=== PATIENT | female | born 1950 | race Caucasian/White ===

== ENCOUNTER → 2017-01-21 | Outpatient (CLI) | payer BC ==
[2017-01-21 14:24] LABS: Appearance,Urine Clear (Clear); Bilirubin,Urine Negative (Negative); Glucose,Urine (UA) Negative (Negative); Ketones,Urine Negative (Negative); Leukocyte Esterase,Urine Negative (Negative); Nitrite,Urine Negative (Negative); PH, Urine 6.5 (5.0-8.0); Protein,Urine Negative (Negative); Specific Gravity,Urine 1.016 (1.001-1.035); UA Billing (MACRO vs. MICRO) CHEM; Urobilinogen,Urine <2.0 mg/dL (<2.0)
[2017-01-21 14:28] LABS: Basophils # (A) 0.1 k/uL (0-0.2); Basophils % (A) 2 %; CH 32.7; CHCM 34.6; Eosinophils # (A) 0.1 k/uL (0-0.7); Eosinophils % (A) 2 %; HCT 47.5 % (34.0-46.0); HDW 2.93; HGB 15.9 gm/dL (11.4-16.0); Luc # (Auto) 0.18; Luc % (Auto) 4; Lymphocytes # (A) 0.9 k/uL (1.0-4.8); Lymphocytes % (A) 17 %; MCH 31.7 pg (25.0-35.0); MCHC 33.5 g/dL (31.0-37.0); MCV 94.8 fL (80.0-100.0); Mean Platelet Volume 8.6; Monocytes # (A) 0.4 k/uL (0-1.0); Monocytes % (A) 8 %; Neutrophils # (A) 3.5 k/uL (1.3-7.7); Neutrophils % (A) 68 %; RBC 5.02 m/uL (3.80-5.40); RDW 13.3 % (11.5-15.5); WBC 5.1 k/uL (3.8-10.6); WBC (Perox) 5.25
[2017-01-21 14:36] LABS: Partial Thromboplastin Time 23.7 sec (22.0-30.0); Prothrombin Time 9.9 sec (9.0-12.0)
[2017-01-21 14:40] LABS: ALT 49 U/L (9-52); AST 42 U/L (14-36); Alkaline Phosphatase 110 U/L (38-126); Anion Gap 14 mmol/L; Blood Urea Nitrogen 17 mg/dL (7-17); Calcium 10.5 mg/dL (8.4-10.2); Carbon Dioxide 28 mmol/L (22-30); Chloride 104 mmol/L (98-107); Glucose 89 mg/dL (74-99); Non-African American GFR(MDRD) >60 (>60 ml/min/1.73 sqM); Potassium 4.6 mmol/L (3.5-5.1); Sodium 146 mmol/L (137-145); Total Bilirubin 0.7 mg/dL (0.2-1.3); Total Protein 8.4 g/dL (6.3-8.2)
== END | disposition home or self-care (01) ==
LOC: LABPAT 14:01
PROVIDERS: ATTEND Orthopaedic Surgery Sports Medicine
DX: Z01.812 Encounter for preprocedural laboratory examination (principal); Z79.01 Long term (current) use of anticoagulants
CPT/HCPCS: 80053; 81003; 85025; 85610; 85730; 87070

== ENCOUNTER 2017-01-31 12:53 | Inpatient (IN) | payer BC ==
[2017-01-22 10:41] VITALS: BMI 33.7
[~2017-01-31 12:53] MED LIST: ACETAMINOPHEN TAB 500 MG TAB PO ONE; DEXAMETHASONE SOD PHOSPHATE 10 MG/ML 1 ML VIAL IV ONE; HYDROmorphone 1 MG/ML 1 ML SYRINGE IVP PRN; LIDOCAINE 1% 20 ML VIAL (10MG/ML) FOR IV START INTRADERMA PRN; MELOXICAM 7.5 MG TAB PO ONE; METOCLOPRAMIDE 5 MG/ML 2 ML VIAL IVP PRN; MIDAZOLAM 2 MG/2 ML VIAL IV PRN; ONDANSETRON 4 MG/2 ML VIAL IVP ONE; ONDANSETRON 4 MG/2 ML VIAL IVP PRN; ROPIVACAINE 246.25 MG, EPINEPHrine 0.5 MG, KETOROLAC 30 MG, cloNIDine HCL/PF 80 MCG, WA... MISCELLANE ONE; TRANEXAMIC ACID 1,000 MG in SODIUM CHLORIDE 0.9% 100 ML IVPB ONE; ceFAZolin 2 GM in SODIUM CHLORIDE 0.9% 100 ML IVPB ONE
[2017-01-31] MEDS ORDERED: LIDOCAINE 1% 20 ML VIAL (10MG/ML) FOR IV START INTRADERMA ONE (13:30)
[2017-01-31] MEDS: LACTATED RINGERS 1,000 ML IV SCH ×4 (13:30→23:16)
[2017-01-31] MEDS ORDERED: PROPOFOL 10 MG/ML 20 ML VIAL IV ONE (14:44)
[2017-01-31] MEDS ORDERED: diphenhydrAMINE 50 MG/ML 1 ML VIAL ONE (14:44)
[2017-01-31] MEDS ORDERED: ePHEDrine 50 MG/ML 1 ML AMP ONE (14:44)
[2017-01-31] MEDS ORDERED: MIDAZOLAM 2 MG/2 ML VIAL ONE (14:44)
[2017-01-31] MEDS ORDERED: MORPHINE SULFATE (PF) 0.3 MG/0.3 ML SYR ONE (14:44)
[2017-01-31] MEDS ORDERED: TRANEXAMIC ACID 1,000 MG/10 ML VIAL ONE (14:44)
[2017-01-31] MEDS ORDERED: SODIUM CHLORIDE 0.9% 100 ML BAG ONE (14:44)
[2017-01-31] MEDS ORDERED: hydrOXYzine PAMOATE 25 MG CAP PO PRN (14:48)
[2017-01-31] MEDS ORDERED: MAGNESIUM HYDROXIDE 2,400 MG/10 ML CUP PO PRN (14:48)
[2017-01-31] MEDS ORDERED: TEMAZEPAM 15 MG CAP PO PRN (14:48)
[2017-01-31] MEDS ORDERED: HYDROcodone/APAP 7.5-325MG 1 EACH TAB PO PRN ×2 (14:48)
[2017-01-31] MEDS ORDERED: BISACODYL 10 MG SUPP RECTAL PRN (14:48)
[2017-01-31] MEDS ORDERED: DIAZEPAM 5 MG TAB PO PRN (14:48)
[2017-01-31] MEDS ORDERED: HYDROmorphone 1 MG/ML 1 ML SYRINGE IVP PRN ×3 (14:48)
[2017-01-31] MEDS ORDERED: traMADol 50 MG TAB PO PRN (14:48)
[2017-01-31] MEDS ORDERED: NALOXONE 0.4 MG/ML 1 ML VIAL IV PRN ×2 (14:48→17:01)
[2017-01-31] MEDS ORDERED: NA PHOS,M-B/NA PHOS,DI-BA 133 ML ENEMA RECTAL PRN (14:48)
[2017-01-31] MEDS ORDERED: ONDANSETRON 4 MG/2 ML VIAL IVP PRN (14:48)
[2017-01-31] MEDS ORDERED: ACETAMINOPHEN TAB 325 MG TAB PO PRN (14:48)
[2017-01-31] MEDS ORDERED: ceFAZolin 3,000 MG in SODIUM CHLORIDE 0.9% IRRIGATIO 3,000 ML IRRIGATION ONE (15:15)
[2017-01-31] MEDS ORDERED: LACTATED RINGERS 1,000 ML IV ONE (15:52)
[2017-01-31] MEDS ORDERED: PROMETHAZINE INJ 6.25 MG in SODIUM CHLORIDE 0.9% 50 ML IVPB PRN (17:01)
[2017-01-31] MEDS ORDERED: diphenhydrAMINE 50 MG/ML 1 ML VIAL IVP PRN (17:01)
[2017-01-31] MEDS ORDERED: NALBUPHINE 10 MG/ML AMPUL IV PRN (17:01)
[2017-01-31] MEDS ORDERED: MORPHINE SULFATE 4 MG/ML SYRINGE IVP PRN ×2 (17:01→19:01)
--- NOTE | 2017-01-31 17:01 | XR ---
EXAMINATION TYPE: XR knee limited RT DATE OF EXAM: 01/31/2017 4:52 PM COMPARISON: NONE TECHNIQUE: One view submitted HISTORY: Post op FINDINGS: There is a prosthetic knee in near anatomic alignment. There is soft tissue edema and emphysema. IMPRESSION: 1. Postoperative change. Appears in near-anatomic alignment
[2017-01-31] MEDS ORDERED: WARFARIN 2.5 MG TAB PO ONE (18:00)
[2017-01-31] MEDS ORDERED: SENNOSIDES-DOCUSATE SODIUM 1 EACH TAB PO SCH (21:00)
[2017-01-31] MEDS: ceFAZolin 2 GM in SODIUM CHLORIDE 0.9% 100 ML IVPB SCH (23:15)
[2017-02-01 07:12] LABS: INR 1.7 (<1.1); Prothrombin Time 16.8 sec (9.0-12.0)
[2017-02-01 07:21] VITALS: BP 120/70; PULSE 80; RESP 17; TEMP 96.3
[2017-02-01 07:24] LABS: Basophils % (A) 0 %; CH 32.3; CHCM 34.8; Eosinophils % (A) 0 %; HCT 34.9 % (34.0-46.0); HDW 2.98; Luc # (Auto) 0.08; Luc % (Auto) 1; Lymphocytes # (A) 0.4 k/uL (1.0-4.8); Lymphocytes % (A) 5 %; MCH 32.8 pg (25.0-35.0); MCHC 35.2 g/dL (31.0-37.0); MCV 93.1 fL (80.0-100.0); Mean Platelet Volume 8.6; Monocytes # (A) 0.3 k/uL (0-1.0); Monocytes % (A) 4 %; Neutrophils # (A) 7.6 k/uL (1.3-7.7); Neutrophils % (A) 90 %; RBC 3.75 m/uL (3.80-5.40); RDW 13.5 % (11.5-15.5); WBC 8.4 k/uL (3.8-10.6); WBC (Perox) 8.98
[2017-02-01 07:34] LABS: HGB 12.3 gm/dL (11.4-16.0)
[2017-02-01] MEDS: ceFAZolin 2 GM in SODIUM CHLORIDE 0.9% 100 ML IVPB SCH (07:55)
--- NOTE | 2017-02-01 07:59 | OP ---
DATE OF SERVICE: 01/31/2017 SURGEON: RAO PAN MD ADJUNCT PSYCHOLOGY FACULTY MEMBER: Avery Akers PA-C PREOPERATIVE DIAGNOSIS: Right knee osteoarthrosis. POSTOPERATIVE DIAGNOSIS: Right knee osteoarthrosis. OPERATION: Right total knee arthroplasty. ANESTHESIA: Spinal with sedation. ESTIMATED BLOOD LOSS: 100 mL SPECIMENS REMOVED: COMPLICATIONS: None apparent. TOURNIQUET TIME: 43 minutes at 250 mmHg. DRAINS: None. DISPOSITION: Postanesthesia care unit. OPERATIVE FINDINGS: INDICATIONS: Stacey is a 66-year-old female with long-standing history of right knee pain. History and physical examination are consistent with advanced right knee osteoarthrosis. She has been through significant nonoperative management up to this point. Further treatment options were discussed and she has decided to go forward with right total knee arthroplasty. The risks of the procedure were discussed with her in detail. These risks include, but are not limited to risk of infection, nerve damage, bleeding, pain, and a small risk of deep vein thrombosis, which could lead to fatal apartment pulmonary embolism. There is also a risk of loosening of the implant, which could require revision operation. The patient understands these risks. All of her questions were answered to her satisfaction. Appropriate informed consent was obtained. DESCRIPTION OF THE PROCEDURE: The patient was identified in the preoperative holding area. Surgical site was marked by both the patient and myself. She was given 2 grams of Ancef IV for prophylactic purposes. She was then transferred to the operative suite where he she was placed supine on the operating room table. Spinal anesthetic was then administered and dosed by the anesthesia department without apparent complication. Examination under anesthesia then performed. The patient had 2 to 3 degrees shy of full extension. She had 95 degrees of flexion and the medial collateral ligament, lateral collateral ligament and posterior cruciate ligaments were stable. Tourniquet was then placed high on the right upper thigh, well-padded in preparation for surgery. Patient's right lower extremity was then prepped and draped usual sterile fashion. Standard surgical pause was then undertaken to ensure that we were operating on correct site and that appropriate preoperative antibiotics had been given. All staff in the room were in agreement and we proceeded. The outlines of the patella were then marked with a surgical pen. A planned 12 cm vertical incision centered over the patella was marked with a surgical pen. The leg was then exsanguinated with an Esmarch dressing. The knee was then flexed and tourniquet was inflated to 250 mmHg. The total tourniquet time for the procedure was 43 minutes. The incision was then made in the uatsdin 10 blade scalpel. Dissection was carried down sharply to the overlying fascia. Great care was taken to minimize the skin flaps. The knee was then exposed using a standard medial parapatellar approach. A small cuff of quadriceps tendon was then left for suturing. She was in a bit of varus preoperatively. A standard medial release was then made. Superficial medial collateral ligament was dissected off the bone around to the posterior aspect of the proximal tibia. The medial meniscus was then excised as well. The lateral meniscus was also released anteriorly. The leg was then externally rotated. The patella was then everted and the knee was flexed. Retractors were then placed to protect the collateral ligaments. I then proceeded to remove the infrapatellar fat pad. This was excised sharply tangentially with the fibers of the patellar tendon. I then proceeded to remove the peripheral osteophytes. This was done with a rongeur. I then proceeded with the distal femoral resection. She did have near full extension. A planned 9 mm resection was done. The femoral canal was then entered in the midline of the femur approximately 10 mm anterior to the origin of the posterior cruciate ligament. The carlos was then advanced down the center of the femur and the carlos placed intramedullary. Based on preoperative radiographs, the angle between the anatomic and mechanical axis of the femur was approximately 4 to 5 degrees the valgus angle of distal femoral cutting guide was then set at 4 degrees for the right knee. The distal femoral cutting guide was then advanced over the intramedullary carlos. This was seated firmly against the femur. I then, as mentioned, planned to take 9 mm off the distal femur. The cutting block was then secured onto the femur with pins. Jig was then removed and the distal femoral cut was made through the slot of the block. The pins then removed and the distal femoral cutting block was removed. The accuracy of the distal femoral cuts was checked with 2 flat bars. I then proceeded with femoral sizing. The posterior referencing sizing guide was held firmly against the resected distal surface of the femur. Posterior condyles were resting on the posterior plane of the guide. The sizing stylus was then placed onto the anterior femur. The size measured a size 8. I then assessed for femoral rotation. Plan was for 3 degrees of external rotation. 3 degrees of external rotation was placed onto the jig. These holes were then marked. I then confirmed the rotation by 3 separate methods. This was done using the epicondylar axis as well as Whitesides line and posterior referencing. It was deemed that the external rotation was proper. I then went forward placing the femoral cutting block. This was placed over the previously placed pinholes. Ricky wing was then placed onto the anterior slots to ensure that we would not notch the anterior femur with the anterior femoral cut. I then proceeded with the anterior femoral cut. This was flush with the anterior cortex of the femur. Posterior cuts were then made followed by the anterior chamfer cut and then the posterior chamfer cut. The cutting block was then removed. Throughout the resection, the collateral ligaments were protected with retractors. I then placed a trial size 8 femur. It was slightly wide medial to lateral and then it fit flush with the distal end of the femur. The narrow version of an 8 seemed appropriate. The drill holes were then made. I then proceeded with the tibial cut. I planned for cruciate-retaining knee. The guide was placed and set for varus valgus and for slope. The height was then set for an approximately 2 mm resection from the medial tibial plateau, which was the lower side. I was happy with the alignment and the amount of resection. The cutting block was then pinned to the proximal tibia. The alignment carlos was removed and the proximal tibia was resected with the reciprocating saw. Again this was done with retractors, protecting the collateral ligaments as well as posterior cruciate ligament. I then proceeded to evaluate the flexion and extension gaps. A 10 mm block was placed. The flexion-extension gaps were equal. I then proceeded with resection of the posterior osteophytes. She had very minimal posterior osteophytes. This was done with a curved osteotome. This resected the posterior osteophytes and posterior capsule stripping was also done off the posterior aspect of the femur at this time. The osteophytes were removed. I then proceeded with resection of the patella. The thickness of the patella was measured using the caliper. The thickness of is 22 mm. The thickness of the anticipated patellar dome was taken into account. Resection was then performed and confirmed to be equal in 4 quadrants using the caliper. Approximately 14 mm of bone remained after the resection. A 29 x 8 standard patellar trial was then placed. The holes were then drilled and trial was then placed. I then proceeded with sizing the tibial plate. A size E tibial plate fit very nicely. I then placed a trial femur, tibial tray and the patellar button. A 10 mm trial tibial insert was also placed. The components were fit very nicely. She had full extension and flexion. Extension and flexion gaps were equal and stable to both varus and valgus stress. The patella tracked appropriately. The tibial tray rotation was marked with a Bovie. This was externally rotated properly. I then proceeded with tibial preparation. I first drilled the femoral holes and removed the femoral component. The tibial tray was set for proper external rotation as well as mediolateral placement onto the tibia. It was then pinned into place. I then proceeded with punching the keel. I then decided to proceed with cementing of all of our components. The knee was thoroughly irrigated with sterile saline solution via pulse lavage. The lateral genicular artery was identified and cauterized. All blood was removed from the bone of the tibia, femur and patella with pulse lavage. I then proceeded with cementing. 2 packs of antibiotic bone cement were prepared on the back table by the surgical manager. I then proceeded with cementing of the tibia first. The cement was then impacted in the keel as well as deeply seated into the bone. A second coat of cement was then placed. The tibia was then impacted into place. Excess cement was removed with Edmond's and jokers. I then proceeded with cementing of the femoral component. The femoral component was also cemented using standard technique. Excess cement was removed. A 10 mm trial insert was then placed in the knee. It was brought into full extension with a constant axial load placed until the cement had hardened. The patellar component was then cemented. This was held firmly with a compressive device until the cement had dried. When the cement had dried, the knee was taken out of extension. All excess cement was removed from around the prosthesis. I then trialed the knee with a 10 mm insert. Flexion-extension gaps were appropriate. The knee was stable with a 10 mm insert. It came into full extension. I decided to go forward with a 10 mm cross-linked cruciate-retaining tibial insert. The polyethylene was then placed onto the tibial tray and locked into place. The knee was then reduced. The knee was again further irrigated with sterile saline solution with antibiotic added. The tourniquet was then deflated. The total tourniquet time for the procedure was 43 minutes at 250 mm. Final components were Tess Persona size 8 narrow cruciate-retaining femoral component, a size E tibial tray, a 10 mm medial congruent cruciate retaining polyethylene insert and a 29 x 8 mm patella. I then proceeded with closure. Again, the knee was thoroughly irrigated. Quadriceps tendon and the medial retinaculum were reapproximated with #2 Ethibond suture. The extensor mechanism was then closed with running #2 Quill suture. Subcutaneous tissues were closed with 2-0 Vicryl interrupted suture. Skin was closed with running 3-0 Quill suture. Dermabond was applied to the incision. Sterile compressive dressings were applied. All sponge and needle counts were deemed correct prior to closure. The patient tolerated the procedure without apparent complication. She was transferred to recovery room in stable condition.
--- NOTE | 2017-02-01 08:17 | P.PN ---
Progress Note - Text Date:02/01 Time:716 Patient is status post tkr. Patient seen this morning with VAS score of 0.no c/ o of pruritus, no c/o nausea/vomiting, comfortable and doing well.
--- NOTE | 2017-02-01 10:06 | P.DS ---
Providers Date of admission: 01/31/17 12:53 Expected date of discharge: 02/01/17 Attending physician: Pacheco Mosher Consults: 01/31/17 14:48 Consult Physician Routine Consulting Provider: Lane Patiño Consult Reason/Comments: post op medical management Do you want consulting provider notified?: Yes Primary care physician: Angie García DO Hospital Course: Patient was admitted to the OR on 01/31/2017 to undergo right total knee arthroplasty per Dr. Mosher. She had failed conservative measures as an outpatient and desired to proceed with elective surgery after given informed consent. She underwent the above procedure which she tolerated well without complication. Her postoperative hospital course has remained without complication. On day of discharge she desires discharge to home. On day of discharge she is afebrile, vital signs stable, labs within acceptable ranges, wound is benign, abdomen soft and nontender, calf is soft and nontender, neurovascular status intact, voiding without difficulty, positive flatus, tolerating by mouth meds and diet, denying new complaints, denying abdominal pain, denying calf pain. Review of systems is negative for fever, chills, chest pain, shortness of breath, cough, numbness, tingling, headaches, nausea, vomiting, dizziness, rashes, bleeding, slurred speech or other. Procedures: Right total knee arthroplasty Patient Condition at Discharge: Good Plan - Discharge Summary New Discharge Prescriptions: Docusate [Colace] 100 mg PO BID #60 capsule HYDROcodone/APAP 7.5-325MG [[place] 7.5-325] 1 - 2 each PO Q6HR PRN #90 tab PRN Reason: Pain Discharge Medication List Apremilast [Otezla] 30 mg PO BID 01/22/17 [History] Clopidogrel [Plavix] 75 mg PO DAILY 01/22/17 [History] Enalapril [Vasotec] 10 mg PO DAILY 01/22/17 [History] Hydrochlorothiazide 25 mg PO DAILY 01/22/17 [History] Levothyroxine Sodium [Synthroid] 50 mcg PO DAILY 01/22/17 [History] Metoprolol Succinate (ER) [Toprol Xl] 100 mg PO HS 01/22/17 [History] Tolterodine ER [Detrol LA] 4 mg PO HS 01/22/17 [History] amLODIPine [Norvasc] 10 mg PO DAILY 01/22/17 [History] azaTHIOprine [Imuran] 50 mg PO DAILY 01/22/17 [History] hydrALAZINE HCL [Apresoline] 100 mg PO DAILY 01/22/17 [History] traMADol HCl [Ultram] 50 mg PO Q8H PRN 01/22/17 [History] Rosuvastatin Calcium [Rosuvastatin Calcium] 10 mg PO HS 01/31/17 [History] Warfarin [Coumadin] 7.5 mg PO ONCE 01/31/17 [History] Docusate [Colace] 100 mg PO BID #60 capsule 02/01/17 [Rx] HYDROcodone/APAP 7.5-325MG [[place]akers 7.5-325] 1 - 2 each PO Q6HR PRN #90 tab [Rx] Follow up Appointment(s)/Referral(s): Maria [facility] [place], [NON-STAFF] - 1 Week Pacheco Mosher MD [STAFF PHYSICIAN] - 2 Weeks Ambulatory/Diagnostic Orders: Prothrombin Time INR [LAB.AMB] Location: Determined By Patient Activity/Diet/Wound Care/Special Instructions: Keep wound clean and dry Take meds as directed Follow-up with Dr. Mosher in office, [phone] May shower in 72 hours Weight-bear as tolerated Discharge Disposition: HOME WITH HOME HEALTH SERVICES
[2017-02-01] MEDS ORDERED: MULTIVITAMINS, THERA 1 EACH TAB PO SCH (12:00)
[2017-02-01] MEDS: LACTATED RINGERS 1,000 ML IV SCH (13:10)
[2017-02-01] MEDS ORDERED: WARFARIN 5 MG TAB PO ONE (18:00)
--- NOTE | 2017-02-01 21:18 | CONS ---
DATE OF CONSULTATION: REASON FOR CONSULTATION: Recommendations regarding antihypertensive medications. Patient underwent a right knee arthroplasty. Patient is on multiple antihypertensive medications. After which patient was seen yesterday postsurgery was quite hypotensive and received IV fluid. Today in spite of not taking any of her medications, patient's blood pressure still remained low normal of normal at 120/70 and patient is on multiple antihypertensive medications at home. I did evaluate the patient and patient's DVT prophylaxis per primary service. Patient appears to have his atrial fibrillation history. Patient is on Coumadin at home, which can be continued and INR needs to be tested in 4 more days and patient is on multiple medications, including enalapril, hydrochlorothiazide, amlodipine, hydralazine and patient's blood pressure remained low in spite of not taking any of these medications. Along with that, patient is on Toprol-XL for A. fib. I did evaluate the patient. The patient's all review of systems are negative and patient is being discharged today. I modified the medications. I cut down the enalapril to half, discontinued hydrochlorothiazide and amlodipine. Patient will need to check her blood pressure twice a day, appropriate way to measure the blood pressure was counseled to the patient and take it to the primary care physician. Patient needs to see her PCP Dr. Angie García in about 3 to 7 days. REVIEW OF SYSTEMS: CONSTITUTIONAL: No fever, no malaise, no fatigue. HEENT: No recent visual problems or hearing problems. Denied any sore throat. CARDIOVASCULAR: No chest pain, orthopnea, PND, no palpitations, no syncope. PULMONARY: No shortness of breath, no cough, no hemoptysis. GASTROINTESTINAL: No diarrhea, no nausea, no vomiting, no abdominal pain. Normoactive bowel sounds. NEUROLOGICAL: No headaches, no weakness, no numbness. HEMATOLOGICAL: Denies any bleeding or petechiae. GENITOURINARY: Denies any burning micturition, frequency, or urgency. MUSCULOSKELETAL/RHEUMATOLOGICAL: Denies any joint pain, swelling, or any muscle pain. ENDOCRINE: Denies any polyuria or polydipsia. The rest of the 14 point review of systems is negative. Home medications include: Enalapril, Tramadol, azathioprine, Coumadin, ( ), atorvastatin, metoprolol, levothyroxine, Plavix, Otezla, hydrocodone, acetaminophen, Docusate. PAST MEDICAL HISTORY: Significant for atrial fibrillation, hypertension, myocardial infarction in the past, osteoarthritis, hypothyroidism, dermatomyositis and bladder surgery in the past, cardiac ablation surgery, cardiac catheterization in the past with stent placement, hysterectomy, colonoscopy. SOCIAL HISTORY: Denied any smoking, alcohol abuse or drug abuse. FAMILY HISTORY: Significant for some kind of cancer. PHYSICAL EXAMINATION: Temperature 96.3, pulse of 80, respiratory rate of 17. Blood pressure is 120/70. Saturating at 97% on room air. GENERAL: The patient is alert and oriented x3, not in any acute distress. Well developed, well nourished. HEENT: Pupils are round and equally reacting to light. EOMI. No scleral icterus. No conjunctival pallor. Normocephalic, atraumatic. No pharyngeal erythema. No thyromegaly. CARDIOVASCULAR: S1 and S2 present. No murmurs, rubs, or gallops. PULMONARY: Chest is clear to auscultation, no wheezing or crackles. ABDOMEN: Soft, nontender, nondistended, normoactive bowel sounds. No palpable organomegaly. MUSCULOSKELETAL: Defer to orthopedic surgery. EXTREMITIES: No cyanosis, clubbing, or pedal edema. NEUROLOGICAL: Gross neurological examination did not reveal any focal deficits. SKIN: No rashes. LABORATORY DATA: INR is 1.7. Hemoglobin is 12.3. The rest of the labs are essentially within normal limits and x-rays of the right knee were reviewed. ASSESSMENT AND PLAN: 1. Hypotension. Regarding antihypertensive management as dictated in the history itself. The medication because of this was reviewed by me. Patient is okay to be discharged from medical perspective. 2. Status post right knee arthroplasty. Patient is already on anticoagulation for atrial fibrillation, on Coumadin, which can be continued. Repeat INR in 4 days. 3. Atrial fibrillation, rate controlled. Metoprolol can be continued. 4. Acute coronary artery disease. 5. Hypothyroidism. 6. History of dermatomyositis. For above-mentioned chronic medical problems, the rest of her home medications including azathioprine can be continued. Otezla can be continued. Patient will follow with her primary care physician on February 08 at 1:00 p.m. [facility] care will follow the patient. Follow with Orthopedic Surgery as scheduled. Thank you for letting me participate in this patient's care. Will sign off at this point of time.
== END 2017-02-01 15:20 | disposition home health service (06) | DRG 470 ==
LOC: 2ORMAIN 12:53 → 3SUR 16:34
PROVIDERS: ADMIT Orthopaedic Surgery Sports Medicine; ATTEND Orthopaedic Surgery Sports Medicine
PROC: 0SRC0J9 Replacement of Right Knee Joint with Synthetic Substitute, Cemented, Open Approach (ICD-10-PCS; principal; 2017-01-31 15:00)
DX: M17.11 Unilateral primary osteoarthritis, right knee (principal); I48.91 Unspecified atrial fibrillation; I10 Essential (primary) hypertension; E03.9 Hypothyroidism, unspecified; Z91.041 Radiographic dye allergy status; Z79.82 Long term (current) use of aspirin; Z79.899 Other long term (current) drug therapy; I25.10 Atherosclerotic heart disease of native coronary artery without angina pectoris; I25.2 Old myocardial infarction
CPT/HCPCS: 85025; 85610; 88300

== ENCOUNTER 2021-12-20 12:09 | Emergency (ER) | payer BC, MEDICARE ==
[2021-12-20 12:26] VITALS: BP 190/90; RESP 18; TEMP 98.8
[2021-12-20] MEDS ORDERED: SODIUM CHLORIDE 0.9% 50 ML IVPB ONE (13:15)
[2021-12-20] MEDS ORDERED: SOTROVIMAB (EUA) 500 MG in SODIUM CHLORIDE 0.9% 100 ML IVPB ONE (13:45)
--- NOTE | 2021-12-20 13:50 | XR ---
EXAMINATION TYPE: XR chest 2V DATE OF EXAM: 12/20/2021 COMPARISON: NONE TECHNIQUE: PA and lateral views submitted. HISTORY: Cough FINDINGS: The lungs are clear and there is no pneumothorax, pleural effusion, or focal pneumonia. Heart is en larged. Atherosclerotic change aorta. Biapical pleural thickening. No overt failure. IMPRESSION: 1. Cardiomegaly.
--- NOTE | 2021-12-20 14:00 | ED ---
URI HPI - General Chief Complaint: Upper Respiratory Infection Stated Complaint: Covid exposure Time Seen by Provider: 12/20/21 12:20 Source: patient, RN notes reviewed Mode of arrival: ambulatory Limitations: no limitations - History of Present Illness Initial Comments: 71-year-old female presents emergency Department with chief complaint cough congestion 2 days. Patient states she had recent COVID-19 exposure. Patient states she has nonproductive cough, body aches, headache and nasal congestion. Patient denies any chest pain no GI symptoms includingdiarrhea constipation. Patient has no other complaints. Patient's had prior COVID-19 vaccination. - Related Data Home Medications Medication Instructions Recorded Confirmed Apremilast [Otezla] 30 mg PO BID 01/22/17 01/31/17 Clopidogrel [Plavix] 75 mg PO DAILY 01/22/17 01/31/17 Enalapril [Vasotec] 5 mg PO DAILY 01/22/17 02/01/17 Levothyroxine Sodium [Synthroid] 50 mcg PO DAILY 01/22/17 01/31/17 Metoprolol Succinate (ER) [Toprol 100 mg PO HS 01/22/17 01/31/17 Xl] Tolterodine ER [Detrol LA] 4 mg PO HS 01/22/17 01/31/17 azaTHIOprine [Imuran] 50 mg PO DAILY 01/22/17 01/31/17 traMADol HCl [Ultram] 50 mg PO Q8H PRN 01/22/17 01/31/17 Rosuvastatin Calcium 10 mg PO HS 01/31/17 01/31/17 Warfarin [Coumadin] 7.5 mg PO ONCE 01/31/17 01/31/17 Previous Rx's Medication Instructions Recorded Docusate [Colace] 100 mg PO BID #60 capsule 02/01/17 HYDROcodone/APAP 7.5-325MG [[place] 1 - 2 each PO Q6HR PRN #90 tab 02/01/17 7.5-325] Allergies Allergy/AdvReac Type Severity Reaction Status Date / Time Iodinated Contrast Media AdvReac SEVERE Verified 02/01/17 02:17 [Iodinated Contrast Media - PAIN AND Oral and] METAL TASTE IN MOUTH Review of Systems ROS Statement: Those systems with pertinent positive or pertinent negative responses have been documented in the HPI. ROS Other: All systems not noted in ROS Statement are negative. Past Medical History Past Medical History: Atrial Fibrillation, Hypertension, Myocardial Infarction ([place]), Osteoarthritis (OA), Skin Disorder, Thyroid Disorder Additional Past Medical History / Comment(s): DERMATOMYOSITIS. OVERACTIVE BLADDER Last Myocardial Infarction Date:: 04/2007 History of Any Multi-Drug Resistant Organisms: None Reported Past Surgical History: Bladder Surgery, Cardiac Ablation, Heart Catheterization With Stent, Hysterectomy Additional Past Surgical History / Comment(s): COLONOSCOPY. LT CAROTID ENDARTERECTOMY, TRK. D & C Past Anesthesia/Blood Transfusion Reactions: No Reported Reaction Date of Last Stent Placement:: 04/2007 Past Psychological History: No Psychological Hx Reported Smoking Status: Never smoker Past Alcohol Use History: Occasional Past Drug Use History: None Reported - Past Family History Brother(s) Family Medical History: Cancer General Exam Limitations: no limitations General appearance: alert, in no apparent distress Head exam: Present: atraumatic, normocephalic, normal inspection Eye exam: Present: normal appearance, PERRL, EOMI. Absent: scleral icterus, conjunctival injection, periorbital swelling ENT exam: Present: normal exam, normal oropharynx, mucous membranes moist Neck exam: Present: normal inspection, full ROM. Absent: tenderness, meningism us, lymphadenopathy Respiratory exam: Present: normal lung sounds bilaterally. Absent: respiratory distress, wheezes, rales, rhonchi, stridor Cardiovascular Exam: Present: regular rate, normal rhythm, normal heart sounds. Absent: systolic murmur, diastolic murmur, rubs, gallop, clicks Course Vital Signs 12/20/21 12:22 Temperature 98.8 F Pulse Rate 67 Respiratory 18 Rate Blood Pressure 190/90 O2 Sat by Pulse 98 Oximetry Medical Decision Making - Medical Decision Making patient's positive occult 19. X-rays unremarkable. Patient did receive monoclonal antibodies discharged in stable condition return parameters were discussed. Patient agrees to plan. - Lab Data Lab Results 12/20/21 Range/Units 12:26 Coronavirus (PCR) Detected A (Not Detectd) Disposition Clinical Impression: COVID-19 Disposition: HOME SELF-CARE Condition: Stable Instructions (If sedation given, give patient instructions): Coronavirus Disease 2019 (COVID-19) Additional Instructions: Please return to the Emergency Department if symptoms worsen or any other concerns. Is patient prescribed a controlled substance at d/c from ED?: No Referrals: Nonstaff,Physician [Primary Care Provider] - 1-2 days Time of Disposition: 14:00
[2021-12-20 14:55] VITALS: PULSE 65
== END 2021-12-20 14:55 | disposition home or self-care (01) ==
LOC: EC 12:09
DX: U07.1 COVID-19 (principal); I48.91 Unspecified atrial fibrillation; I10 Essential (primary) hypertension; I25.2 Old myocardial infarction; M19.90 Unspecified osteoarthritis, unspecified site; E07.9 Disorder of thyroid, unspecified; Z79.02 Long term (current) use of antithrombotics/antiplatelets; Z79.01 Long term (current) use of anticoagulants; Z90.710 Acquired absence of both cervix and uterus
CPT/HCPCS: 99284; 87635; 71046; Q0247

== ENCOUNTER 2025-01-27 15:39 | Inpatient (IN) | payer MEDICARE ==
--- NOTE | 2025-01-27 16:27 | ED ---
General Adult HPI - General Chief complaint: Neuro Symptoms/Deficit Stated complaint: R arm numbness Time Seen by Provider: 01/27/25 16:05 Source: patient Mode of arrival: ambulatory Limitations: no limitations - History of Present Illness Initial comments: Dictation was produced using [employer] dictation software. please excuse any grammatical, word or spelling errors. Chief Complaint: 74-year-old female with multiple comorbidities presents to the emergency department for right arm symptoms History of Present Illness: Patient 74-year-old female presents to the emergency department with intermittent episodes of right upper extremity symptoms. Few days ago she had a short-lived episode where she had trouble using her right arm. States that that lasted and resolved on its own. Patient states today she had frequent at least 3 or 4 episodes of tingling to the right arm. She has history of left carotid endarterectomy and she has plans for outpatient CT angiography of the head and neck. Patient has any symptoms at the bedside. Denies any pain complaints. No other complaints noted. The ROS documented in this emergency department record has been reviewed and confirmed by me. Those systems with pertinent positive or negative responses have been documented in the HPI. All other systems are other negative and/or noncontributory. - Related Data Home Medications Medication Instructions Recorded Confirmed Levothyroxine Sodium [Synthroid] 50 mcg PO DAILY 01/22/17 01/27/25 Metoprolol Succinate (ER) [Toprol 100 mg PO HS 01/22/17 01/27/25 Xl] Losartan/Hydrochlorothiazide 1 tab PO DAILY 01/27/25 01/27/25 [Losartan-Hctz 100-25 mg Tab] Pravastatin Sodium [Pravachol] 20 mg PO HS 01/27/25 01/27/25 allopurinoL [Zyloprim] 100 mg PO HS 01/27/25 01/27/25 amLODIPine [Norvasc] 10 mg PO DAILY 01/27/25 01/27/25 Allergies Allergy/AdvReac Type Severity Reaction Status Date / Time Iodinated Contrast Media AdvReac SEVERE Verified 01/27/25 16:51 [Iodinated Contrast Media - PAIN AND Oral and] METAL TASTE IN MOUTH Review of Systems ROS Statement: Those systems with pertinent positive or pertinent negative responses have been documented in the HPI. ROS Other: All systems not noted in ROS Statement are negative. Past Medical History Past Medical History: Atrial Fibrillation, Hypertension, Myocardial Infarction ([place]), Osteoarthritis (OA), Skin Disorder, Thyroid Disorder Additional Past Medical History / Comment(s): DERMATOMYOSITIS. OVERACTIVE BLADDER Last Myocardial Infarction Date:: 04/2007 History of Any Multi-Drug Resistant Organisms: None Reported Past Surgical History: Bladder Surgery, Cardiac Ablation, Heart Catheterization With Stent, Hysterectomy Additional Past Surgical History / Comment(s): COLONOSCOPY. LT CAROTID ENDARTERECTOMY, TRK. D & C Past Anesthesia/Blood Transfusion Reactions: No Reported Reaction Date of Last Stent Placement:: 04/2007 Past Psychological History: No Psychological Hx Reported Smoking Status: Never smoker Past Alcohol Use History: None Reported Past Drug Use History: None Reported - Past Family History Brother(s) Family Medical History: Cancer General Exam - General Exam Comments Initial Comments: PHYSICAL EXAM: General Impression: Alert and oriented x3, not in acute distress HEENT: Normocephalic atraumatic, extra-ocular movements intact, pupils equal and reactive to light bilaterally, mucous membranes moist. Cardiovascular: Heart regular rate and rhythm Chest: Able to complete full sentences, no retractions, no tachypnea Abdomen: abdomen soft, non-tender, non-distended, no organomegaly Musculoskeletal: Pulses present and equal in all extremities, no peripheral edema Motor: no focal deficits noted Neurological: CN II-XII grossly intact, no focal motor or sensory deficits noted Skin: Intact with no visualized rashes Psych: Normal affect and mood Limitations: no limitations Course Vital Signs 01/27/25 01/27/25 15:56 19:54 Temperature 97.3 F L Pulse Rate 75 82 Respiratory 19 18 Rate Blood Pressure 163/91 181/102 O2 Sat by Pulse 96 99 Oximetry EKG Findings - EKG Comments: EKG Findings:: My EKG interpretation: Ventricular rate 75, sinus rhythm,. Normal 201, QRS 102, QTc 392. No [place] prolongation, no QTC prolongation, no ST or T-wave changes noted. Overall, this EKG is unremarkable Medical Decision Making - Medical Decision Making Was pt. sent in by a medical professional or institution (, PA, UNDERCUTTER, urgent care, hospital, or prison...) When possible be specific @ -No Did you speak to anyone other than the patient for history (EMS, parent, family, police, friend...)? What history was obtained from this source @ -No Did you review nursing and triage notes (agree or disagree)? Why? @ -I reviewed and agree with nursing and triage notes Were old charts reviewed (outside hosp., previous admission, EMS record, old EKG, old radiological studies, urgent care reports/EKG's, prison records)? Report findings @ -No old charts were reviewed Differential Diagnosis (chest pain, altered mental status, abdominal pain women, abdominal pain men, vaginal bleeding, musculoskeletal, weakness, fever, dyspnea, syncope, headache, dizziness, GI bleed, back pain, seizure, CVA, palpatations, mental health)? @ - Differential CVA: Ischemic stroke, hemorrhagic stroke, brain tumor, atypical migraine, Wernicke's encephalopathy, seizure, multiple sclerosis, meningitis, encephalitis, hypoglycemia, Guillain-Gibbons, electrolytes disturbance, myasthenia gravis.... This is not meant to be an all-inclusive list EKG interpreted by me (3pts min.). @ -See above X-rays interpreted by me (1pt min.). @ -None done CT interpreted by me (1pt min.). @ -CT brain CT angiography head and neck shows no acute processes. Patient does have what appears to be significant changes at the left carotid with significant stenosis near 90% at its origin U/S interpreted by me (1pt. min.). @ -None done What testing was considered but not performed or refused? (CT, X-rays, U/S, labs)? Why? @ -None What meds were considered but not given or refused? Why? @ -None Was smoking cessation discussed for >3mins.? @ -No Were there social determinants of health that impacted care today? How? (Homelessness, low income, unemployed, alcoholism, drug addiction, transportation, low edu. Level, literacy, decrease access to med. care, intermediate, rehab)? @ -No Was there de-escalation of care discussed even if they declined (Discuss DNR or withdrawal of care, Hospice)? DNR status @ -No What co-morbidities impacted this encounter? (DM, HTN, Smoking, COPD, CAD, Cancer, CVA, ARF, Chemo, Hep., AIDS, mental health diagnosis, sleep apnea, morbi d obesity)? @ -Carotid stenosis Was patient admitted / discharged? Hospital course, mention meds given and route, prescriptions, significant lab abnormalities, going to OR and other pertinent info. @ -74-year-old female with TIA symptoms affecting the right upper extremity. She has history of left carotid endarterectomy. Patient asymptomatic at the bedside. Vital signs upon arrival are within acceptable limits. Laboratory evaluation is unremarkable. Imaging studies shows no acuity. Patient given aspirin. Disposition options were discussed. Patient agreeable for hospital admission consultation to neurology for transient ischemic attack. Did you discuss the management of the patient with other professionals (professionals i.e. , PA, UNDERCUTTER, lab, RT, psych nurse, psychotherapist social worker, cigar machine feeder, teacher, radio officer, case hardener)? Give summary @ -No Was critical care preformed (if so, how long)? @ -No Undiagnosed new problem with uncertain prognosis? @ -No Drug Therapy requiring intensive monitoring for toxicity (Heparin, Nitro, Insulin, Cardizem)? @ -No Were any procedures done? @ -No Diagnosis/symptom? Acute, or Chronic, or Acute on Chronic? Uncomplicated (without systemic symptoms) or Complicated (systemic symptoms)? @ -TIA Side effects of treatment? @ -No Exacerbation, Progression, or Severe Exacerbation? @ -No Poses a threat to life or bodily function? How? (Chest pain, [place], [place], pneumonia, PE, COPD, DKA, ARF, appy, cholecystitis, CVA, Diverticulitis, Homicidal, Suicidal, threat to staff... and all critical care pts) @ -yes - Lab Data Result diagrams: 01/27/25 16:41 01/27/25 16:41 Lab Results 01/27/25 01/27/25 01/27/25 Range/Units 16:41 16:41 16:41 WBC 5.1 (3.8-10.6) k/uL RBC 4.85 (3.80-5.40) m/uL Hgb 14.6 (11.4-16.0) gm/dL Hct 43.6 (34.0-46.0) % MCV 90.1 (80.0-100.0) fL MCH 30.0 (25.0-35.0) pg MCHC 33.4 (31.0-37.0) g/dL RDW 14.1 (11.5-15.5) % Plt Count 198 (150-450) k/uL MPV 9.2 Neutrophils % 57 % Lymphocytes % 34 % Monocytes % 5 % Eosinophils % 2 % Basophils % 1 % Neutrophils # 2.9 (1.3-7.7) k/uL Lymphocytes # 1.7 (1.0-4.8) k/uL Monocytes # 0.3 (0-1.0) k/uL Eosinophils # 0.1 (0-0.7) k/uL Basophils # 0.0 (0-0.2) k/uL PT 10.6 (10.0-12.5) sec INR 0.9 (<1.2) APTT 24.0 (22.0-30.0) sec Sodium 142 (137-145) mmol/L Potassium 3.9 (3.5-5.1) mmol/L Chloride 100 (98-107) mmol/L Carbon Dioxide 32 H (22-30) mmol/L Anion Gap 10 mmol/L BUN 20 H (7-17) mg/dL Creatinine 0.90 (0.52-1.04) mg/dL Est GFR (CKD-EPI)AfAm 74 (>60 ml/min/1.73 sqM) Est GFR (CKD-EPI)NonAf 64 (>60 ml/min/1.73 sqM) Glucose 98 (74-99) mg/dL Calcium 10.2 (8.4-10.2) mg/dL Disposition Clinical Impression: Transient cerebral ischemia Disposition: ADMITTED IP TO THIS HOSP Condition: Fair Referrals: Nonstaff,Physician [Primary Care Provider] - 1-2 days Decision Time: 20:05
[2025-01-27] MEDS: diphenhydrAMINE 50 MG/ML 1 ML VIAL IVP STA (16:36)
[2025-01-27] MEDS: FAMOTIDINE 20 MG/2 ML VIAL IV STA (16:36)
[2025-01-27] MEDS: methylPREDNISolone SOD SUCCI 125 MG/2 ML VIAL IV STA (16:36)
[2025-01-27 17:02] LABS: Basophils % (A) 1 %; Eosinophils # (A) 0.1 k/uL (0-0.7); Eosinophils % (A) 2 %; HCT 43.6 % (34.0-46.0); HGB 14.6 gm/dL (11.4-16.0); Lymphocytes # (A) 1.7 k/uL (1.0-4.8); Lymphocytes % (A) 34 %; MCHC 33.4 g/dL (31.0-37.0); MCV 90.1 fL (80.0-100.0); Mean Platelet Volume 9.2; Monocytes # (A) 0.3 k/uL (0-1.0); Monocytes % (A) 5 %; Neutrophils # (A) 2.9 k/uL (1.3-7.7); Neutrophils % (A) 57 %; Platelet Count 198 k/uL (150-450); RBC 4.85 m/uL (3.80-5.40); RDW 14.1 % (11.5-15.5); WBC 5.1 k/uL (3.8-10.6)
[2025-01-27 17:12] LABS: African American GFR (CKD) 74 (>60 ml/min/1.73 sqM); Anion Gap 10 mmol/L; Blood Urea Nitrogen 20 mg/dL (7-17); Calcium 10.2 mg/dL (8.4-10.2); Carbon Dioxide 32 mmol/L (22-30); Chloride 100 mmol/L (98-107); Glucose 98 mg/dL (74-99); Non-African American GFR(CKD) 64 (>60 ml/min/1.73 sqM); Potassium 3.9 mmol/L (3.5-5.1); Sodium 142 mmol/L (137-145)
[2025-01-27 17:19] LABS: INR 0.9 (<1.2); Prothrombin Time 10.6 sec (10.0-12.5)
--- NOTE | 2025-01-27 19:06 | CT ---
EXAMINATION TYPE: CT brain wo con DATE OF EXAM: 01/27/2025 COMPARISON: None. CLINICAL INDICATION: Female, 74 years old with history of fall; PHH, patient reports right arm fallin g asleep and becoming limp. patient reports hearing swooshing in left carotid artery, right hand not following commands. Fall injury. TECHNIQUE: CT scan of the head is performed without contrast. CT DLP: 1104 mGycm Automated exposure control for dose reduction was used. FINDINGS: There is no acute intracranial hemorrhage or midline shift identified. There is mild to m oderate diffuse ventricular and sulcal prominence consistent with diffuse age-related cerebral atroph y. There is mild low-attenuation in the periventricular white matter most likely consistent with chr onic small vessel ischemic change in patient of this age. The calvarium is intact. Bilateral aphakia is seen. The visualized sinuses are clear. Nasal septum is deviated to right of midline. IMPRESSION: No acute intracranial hemorrhage or midline shift. [facility], , 01/27/2025 7:04 PM
--- NOTE | 2025-01-27 19:16 | CT ---
EXAMINATION TYPE: CT angio head neck DATE OF EXAM: 01/27/2025 COMPARISON: None. CLINICAL INDICATION: Female, 74 years old with history of neurologic defecit; PHH, patient reports ri ght arm falling asleep and becoming limp. patient reports hearing swooshing in left carotid artery, r ight hand not following commands. TECHNIQUE: CTA scan of the head and neck is performed with IV Contrast, patient injected with 65ml m L of Isovue 370, axial images are obtained, coronal and sagittal reformatted images are reviewed. 3D reconstructed images are created on an independent workstation and reviewed. CT DLP: 503.9 mGycm Automated exposure control for dose reduction was used. NASCET criteria was used in interpretation of this exam? FINDINGS: Right Carotid System: The common carotid artery and external carotid artery are patent. The carotid bifurcation demonstrate s no evidence of hemodynamically significant stenosis. Moderate peripheral calcified plaque is presen t extending into proximal internal carotid artery causing stenosis under 50% The remaining portions o f the internal carotid artery demonstrate normal size without significant narrowing. Left Carotid System: Surgical clips in the left neck are seen. The common carotid artery and external carotid artery are patent. The carotid bifurcation demonstrate s curvilinear low density at origin with significant stenosis estimated near 90% at its origin with o nly little flow along superior aspect axial image 77 noted. There is Additional stenosis in the proximal internal carotid artery with lumen diameter down to 4.1 mm seen o n axial image 81, less than 50%. The remaining portions of the internal carotid artery demonstrate no rmal size without significant narrowing. Vertebral arteries are patent without evidence hemodynamically significant stenosis. Dominant left ve rtebral artery is seen. [id number] peripheral calcified plaque distal internal carotid arteries bilaterally. No large vessel occlusion or aneurysm in the [place]. There is a three-vessel aortic arch. The origins of the great vessels are patent. No evidence of hemo dynamically significant stenosis. Other: Moderate to severe disc space narrowing and endplate sclerosis at C5-C6 level. Moderate disc s pace narrowing at C6-C7 level IMPRESSION: 1. No large vessel occlusion or aneurysm at the level of the [place]. 2. Postsurgical change left neck or carotid bulb level. There appears to be significant stenosis cory r 90% at origin of the surgically treated left internal carotid artery. Advise further investigation with direct catheter angiogram to better evaluate and/or treat. [facility], , 01/27/2025 7:13 PM
[2025-01-27] MEDS ORDERED: NALOXONE 0.4 MG/ML 1 ML VIAL IV PRN (20:02)
[2025-01-27] MEDS: SODIUM CHLORIDE 0.9% 1,000 ML IV SCH (20:18)
[2025-01-27] MEDS: ASPIRIN 81 MG PO STA (20:19)
[2025-01-27] MEDS ORDERED: hydrALAZINE HCL 20 MG/ML 1 ML VIAL IVP PRN (23:15)
[2025-01-28] MEDS: LEVOTHYROXINE 50 MCG TAB PO SCH (06:04)
[2025-01-28] MEDS: LOSARTAN-HCTZ 50-12.5 MG 1 EACH TAB PO SCH (08:52)
[2025-01-28] MEDS: amLODIPine 10 MG TAB PO SCH (08:52)
--- NOTE | 2025-01-28 15:45 | P.CNNES ---
History of Present Illness Consult date: 01/28/25 Requesting physician: Miller Mejia Reason for Consult: tia History of Present Illness: This is a 74-year-old woman who presented emergency department because of right hand weakness and numbness. 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 Then yesterday she had numbness in the entire right arm and she felt was weak so she decided to come to the hospital. Patient states that she feels back to baseline. Denies any visual disturbance difficulty swallowing any weakness anywhere or any numbness anywhere. She has history of atrial fibrillation status post ablation in the past. She denies any history of stroke or TIA but she did have left carotid stenosis that was significant and had carotid enterectomy and she states that was many years back. Patient is on aspirin 81 mg daily. Some of the workup during this hospital visit consisted of: I reviewed the lab workup CT of the head is reported as no acute intracranial hemorrhage or midline shift. I personally reviewed the CT head and agree with report CT angiography of the head and neck: No large vessel occlusion or aneurysm at the level of [place]. Postsurgical changes at the left neck or carotid bulb level. There appears to be significant stenosis near 90% at the origin of the surgical treated left internal carotid artery. Review of Systems As per HPI. Past Medical History Past Medical History: Atrial Fibrillation, Hypertension, Myocardial Infarction ([place]), Osteoarthritis (OA), Skin Disorder, Thyroid Disorder Additional Past Medical History / Comment(s): DERMATOMYOSITIS. OVERACTIVE BLADDER Last Myocardial Infarction Date:: 04/2007 History of Any Multi-Drug Resistant Organisms: None Reported Past Surgical History: Bladder Surgery, Cardiac Ablation, Heart Catheterization With Stent, Hysterectomy, Orthopedic Surgery Additional Past Surgical History / Comment(s): COLONOSCOPY, LT CAROTID ENDARTERECTOMY, TRK, D & C, L hip replacement Past Anesthesia/Blood Transfusion Reactions: No Reported Reaction Date of Last Stent Placement:: 04/2007 Past Psychological History: No Psychological Hx Reported Smoking Status: Never smoker Past Alcohol Use History: None Reported Past Drug Use History: None Reported - Past Family History Brother(s) Family Medical History: Cancer Medications and Allergies Home Medications Medication Instructions Recorded Confirmed Type Levothyroxine Sodium [Synthroid] 50 mcg PO DAILY 01/22/17 01/27/25 History Metoprolol Succinate (ER) [Toprol 100 mg PO HS 01/22/17 01/27/25 History Xl] Losartan/Hydrochlorothiazide 1 tab PO DAILY 01/27/25 01/27/25 History [Losartan-Hctz 100-25 mg Tab] Pravastatin Sodium [Pravachol] 20 mg PO HS 01/27/25 01/27/25 History allopurinoL [Zyloprim] 100 mg PO HS 01/27/25 01/27/25 History amLODIPine [Norvasc] 10 mg PO DAILY 01/27/25 01/27/25 History Allergies Allergy/AdvReac Type Severity Reaction Status Date / Time Iodinated Contrast Media AdvReac SEVERE Verified 01/27/25 16:51 [Iodinated Contrast Media - PAIN AND Oral and] METAL TASTE IN MOUTH Physical Examination - Vital Signs Vital Signs: Vital Signs Temp Pulse Pulse Resp BP BP Pulse Ox 01/28/25 13:45 97.9 F 73 20 137/94 93 L 01/28/25 07:45 97.7 F 69 16 123/75 94 L 01/28/25 02:12 98.4 F 73 16 121/77 97 01/28/25 00:19 97.6 F 87 17 178/112 98 01/27/25 23:06 72 18 174/106 94 L 01/27/25 19:54 82 18 181/102 99 01/27/25 15:56 97.3 F L 75 19 163/91 96 Intake and Output 01/28/25 01/28/25 01/28/25 06:59 14:59 22:59 Intake Total 118 Balance 118 Intake: Oral 118 Other: Voiding Method Toilet # Voids 1 2 Weight 83.461 kg GENERAL: The patient is lying in bed and is not in acute distress. NEUROLOGICAL: Higher mental function: The patient is awake, alert, oriented to self, place and time. Patient is following commands. No aphasia and no neglect. Cranial nerves: The pupils are round, equal and reactive to light and accommodation. Visual tanner are full to confrontation throughout. Extraocular movement is intact no nystagmus is noted. Facial sensation is normal to touch throughout. The facial strength is normal throughout. Hearing is normal bilaterally to hand rub. Tongue is midline and moved [id number] without any difficulty. No dysarthria is noted. Shoulder shrug is normal bilaterally. Motor: The strength is 5 over 5 throughout. Normal tone and bulk. Cerebellum: Normal finger to nose heel to kelley bilaterally. Sensation: Sensation is normal to touch throughout. Reflexes (right/left): 2+ throughout. Plantars are downgoing bilaterally. Results - Laboratory Findings CBC and BMP: 01/27/25 16:41 01/27/25 16:41 Abnormal Lab Findings: Abnormal Labs 01/27/25 16:41 Carbon Dioxide 32 H BUN 20 H Assessment and Plan Assessment: This is a 74-year-old woman who presented emergency department because of right upper extremity numbness and weakness. She stated that she had a week ago and e pisode of right hand dexterity issue then yesterday right upper extremity weakness and numbness that resolved. Transient Ischemic stroke (TIA) due to likely symptomatic left ICA stenosis. Remote history of left ICA stenosis that was significant s/p carotid endartectomy. History of DC in her 50s History of atrial fibrillation status post ablation also thus remote Plan: In the emergency department the patient was given aspirin 325 4 mg once. I resumed her home medication of aspirin 81 mg and start the patient on Plavix 75 mg. Patient is on pravastatin 20 mg nightly I ordered MRI of the brain, lipid panel, 2D echo Continue neurochecks Cardiac monitoring Recommend permissive hypertension for 24 to 40 hours PT and OT are not needed since the patient is back to baseline and has no deficit. Will defer the rest of the medical management to primary and other specialist For DVT prophylaxis I started the patient on subcu heparin Thank you for the consultation Time with Patient: Greater than 30
--- NOTE | 2025-01-28 16:03 | P.GSCN ---
History of Present Illness Consult date: 01/28/25 Reason for Consult: Carotid stenosis persistent with stroke symptoms Requesting physician: Earl Rey History of present illness: 74-year-old female with a history of coronary artery disease status postcardiac stent, vascular disease with history of left carotid endarterectomy in 2007 at [facility], atrial fibrillation s/p cardiac ablation, hypertension, myocardial infarction, arthritis, and thyroid disorder who had presented to the emergency department yesterday with complaints of right-handed weakness and numbness. Patient states this also occurred 2 to 3 days prior where her right hand could not pick anything up. Yesterday her right upper extremity became numb and then weak. She states that her arm was somewhat flaccid. She now reports that she is back to baseline. She was worked up for stroke. Had a brain CT with no acute findings. She underwent a CT angiogram head and neck reporting 90% narrowing of the left internal carotid artery. Vascular surgery was consulted for ICA stenosis. She does not follow with a vascular surgeon or rn intern. States she has not seen her rn intern in years. States she is not taking any anticoagulation for her atrial fibrillation after her ablation. States she is taking a 81 mg aspirin daily but no Plavix. Patient currently is alert and oriented, denies any focal deficits. Denies any shortness of breath, chest pain, abdominal pain, nausea or vomiting, weakness fever chills. Review of Systems A 14 point review systems was completed all pertinent positives and negatives as stated in the HPI. Past Medical History Past Medical History: Atrial Fibrillation, Hypertension, Myocardial Infarction ([place]), Osteoarthritis ([place]), Skin Disorder, Thyroid Disorder Additional Past Medical History / Comment(s): DERMATOMYOSITIS. OVERACTIVE BLADDER Last Myocardial Infarction Date:: 04/2007 History of Any Multi-Drug Resistant Organisms: None Reported Past Surgical History: Bladder Surgery, Cardiac Ablation, Heart Catheterization With Stent, Hysterectomy, Orthopedic Surgery Additional Past Surgical History / Comment(s): COLONOSCOPY, LT CAROTID ENDARTERECTOMY, TRK, D & C, L hip replacement Past Anesthesia/Blood Transfusion Reactions: No Reported Reaction Date of Last Stent Placement:: 04/2007 Past Psychological History: No Psychological Hx Reported Smoking Status: Never smoker Past Alcohol Use History: None Reported Past Drug Use History: None Reported - Past Family History Brother(s) Family Medical History: Cancer Medications and Allergies Home Medications Medication Instructions Recorded Confirmed Type Levothyroxine Sodium [Synthroid] 50 mcg PO DAILY 01/22/17 01/27/25 History Metoprolol Succinate (ER) [Toprol 100 mg PO HS 01/22/17 01/27/25 History Xl] Losartan/Hydrochlorothiazide 1 tab PO DAILY 01/27/25 01/27/25 History [Losartan-Hctz 100-25 mg Tab] Pravastatin Sodium [Pravachol] 20 mg PO HS 01/27/25 01/27/25 History allopurinoL [Zyloprim] 100 mg PO HS 01/27/25 01/27/25 History amLODIPine [Norvasc] 10 mg PO DAILY 01/27/25 01/27/25 History Allergies Allergy/AdvReac Type Severity Reaction Status Date / Time Iodinated Contrast Media AdvReac SEVERE Verified 01/27/25 16:51 [Iodinated Contrast Media - PAIN AND Oral and] METAL TASTE IN MOUTH Surgical - Exam Vital Signs Temp Pulse Resp BP Pulse Ox 97.3 F L 75 19 163/91 96 01/27/25 15:56 01/27/25 15:56 01/27/25 15:56 01/27/25 15:56 01/27/25 15:56 General appearance: The patient is alert, oriented, appears in no acute distress. HET: Head is normocephalic and atraumatic. Pupils are equal and reactive. Neck: Supple. Heart: Regular. Lungs: Equal expansion, normal respiratory effort. Abdomen: Soft, nontender, nondistended. Extremities: Normal skin color and turgor. Neurological: No focal deficits. Strength and sensation are grossly intact. Results - Labs 01/27/25 16:41 01/27/25 16:41 Abnormal Lab Results - Last 24 Hours (Table) 01/27/25 Range/Units 16:41 Carbon Dioxide 32 H (22-30) mmol/L BUN 20 H (7-17) mg/dL Diabetes panel 01/27/25 Range/Units 16:41 Sodium 142 (137-145) mmol/L Potassium 3.9 (3.5-5.1) mmol/L Chloride 100 (98-107) mmol/L Carbon Dioxide 32 H (22-30) mmol/L BUN 20 H (7-17) mg/dL Creatinine 0.90 (0.52-1.04) mg/dL Glucose 98 (74-99) mg/dL Calcium 10.2 (8.4-10.2) mg/dL Calcium panel 01/27/25 Range/Units 16:41 Calcium 10.2 (8.4-10.2) mg/dL Pituitary panel 01/27/25 Range/Units 16:41 Sodium 142 (137-145) mmol/L Potassium 3.9 (3.5-5.1) mmol/L Chloride 100 (98-107) mmol/L Carbon Dioxide 32 H (22-30) mmol/L BUN 20 H (7-17) mg/dL Creatinine 0.90 (0.52-1.04) mg/dL Glucose 98 (74-99) mg/dL Calcium 10.2 (8.4-10.2) mg/dL Adrenal panel 01/27/25 Range/Units 16:41 Sodium 142 (137-145) mmol/L Potassium 3.9 (3.5-5.1) mmol/L Chloride 100 (98-107) mmol/L Carbon Dioxide 32 H (22-30) mmol/L BUN 20 H (7-17) mg/dL Creatinine 0.90 (0.52-1.04) mg/dL Glucose 98 (74-99) mg/dL Calcium 10.2 (8.4-10.2) mg/dL - Imaging Comments: CT angiogram head and neck reports no large vessel occlusion or aneurysm at the level of the [place]. Postsurgical change left neck or carotid bulb level. There appears to be significant stenosis near 90% at the origin of the surgically treated left internal carotid artery. Advised further investigation with direct catheter angiogram to better evaluate and/or treat. Brain CT no acute intracranial hemorrhage or midline shift. Assessment and Plan Assessment: 1. Hemodynamically severe left ICA stenosis 2. Right sided weakness now resolved likely TIA 3. History of left ICA stenosis status post carotid endarterectomy 2007 4. Coronary artery disease status postcardiac stent 5. Atrial fibrillation not on anticoagulation, post cardiac ablation Plan: 1. Agree with adding Plavix 75 mg daily, continue aspirin 81 mg daily and statin 2. Echocardiogram pending 3. Brain MRI pending 4. Continue with recommendations from neurology 5. Further surgical recommendations forthcoming based on clinical course Thank you for this consultation, we will continue to follow. The impression and plan of care has been dictated as directed. Dr.Cuello Al performed a history and examination of this patient, discussed the same with the dictator. I agree with the dictator's note ,documented as a scribe. Any additional findings or plans will be noted.
[2025-01-28] MEDS: CLOPIDOGREL 75 MG TAB PO SCH (16:40)
[2025-01-28] MEDS: ASPIRIN 81 MG PO SCH (17:42)
[2025-01-28] MEDS: allopurinoL 100 MG TAB PO SCH (21:29)
[2025-01-28] MEDS: METOPROLOL SUCCINATE (ER) 100 MG TAB.ER.24H PO SCH (21:29)
[2025-01-28] MEDS: HEPARIN SODIUM,PORCINE 5,000 UNIT/ML 1 ML VIAL SQ SCH (21:30)
[2025-01-28] MEDS: PRAVASTATIN SODIUM 20 MG TAB PO SCH (21:30)
--- NOTE | 2025-01-28 21:34 | P.HPIM ---
History of Present Illness H&P Date: 01/28/25 This is a 74-year-old female with medical history significant for atrial fibrillation, hypertension, hypothyroidism, prior cardiac stenting and cardiac ablation for the atrial fibrillation patient also underwent left carotid endarterectomy. Comes into the hospital with complaints of right upper extr emity weakness that resolved on its own. This happened a couple days ago. States she noticed she was unable to roller picker an object off a table with her right hand. Symptoms resolved. Than yesterday patient states that she has had 3- 4 episodes of tingling in the right arm and her arm was essentially limp. This again resolved on its own. She was planning to have a CT angiography of her head and neck on an outpatient basis but because of the continued symptoms came into the ER for further evaluation. Brain CT reveals no acute intracranial hemorrhage or midline shift. CT angiography reveals no large vessel occlusion or aneurysm at the level of the [place]. There is postsurgical changes left neck or carotid bulb although there appears to be significant stenosis near 90% at the origin of the surgically treated left internal carotid artery advised further investigation directed catheter angiogram to better evaluate and/or treat. There is moderate to severe disc space narrowing, endplate sclerosis at the C5-C6 level moderate to space narrowing at C6-C7. Her CBC is completely un remarkable sodium of 142 potassium 3.9, BUN of 20 creatinine of 0.90. Patient was admitted to the hospital to consult placed to neurology and vascular surgery. She does state that she is supposed to be taking aspirin 81 mg daily however does not remember to take it daily. She has had no issues with her atrial fibrillation since the ablation in 2005. Denies any smoking or alcohol use. REVIEW OF SYSTEMS: CONSTITUTIONAL: No fever, no malaise, no fatigue. HEENT: No recent visual problems or hearing problems. Denied any sore throat. CARDIOVASCULAR: No chest pain, orthopnea, PND, no palpitations, no syncope. PULMONARY: No shortness of breath, no cough, no hemoptysis. GASTROINTESTINAL: No diarrhea, no nausea, no vomiting, no abdominal pain. NEUROLOGICAL: No headaches, no weakness, no numbness. HEMATOLOGICAL: Denies any bleeding or petechiae. GENITOURINARY: Denies any burning micturition, frequency, or urgency. MUSCULOSKELETAL/RHEUMATOLOGICAL: Denies any joint pain, swelling, or any muscle pain. ENDOCRINE: Denies any polyuria or polydipsia. The rest of the 14-point review of systems is negative. PHYSICAL EXAMINATION: GENERAL: The patient is alert and oriented x3, not in any acute distress. Well developed, well nourished. HEENT: Pupils are round and equally reacting to light. EOMI. No scleral icterus. No conjunctival pallor. Normocephalic, atraumatic. No pharyngeal erythema. No thyromegaly. CARDIOVASCULAR: S1 and S2 present. No murmurs, rubs, or gallops. PULMONARY: Chest is clear to auscultation, no wheezing or crackles. ABDOMEN: Soft, nontender, nondistended, normoactive bowel sounds. No palpable organomegaly. MUSCULOSKELETAL: No joint swelling or deformity. EXTREMITIES: No cyanosis, clubbing, or pedal edema. NEUROLOGICAL: Gross neurological examination did not reveal any focal deficits. SKIN: No rashes. Assessment and Plan Right sided parasthesias concern for TIA, symptoms have resolved at this time Severe left ICA stenosis 90% Hx of left carotid endarectomy many years ago History of atrial fibrillation with cardiac ablation in 2005, not on ant icoagulation History of coronary artery disease with prior cardiac stenting Hypertension Hypothyroidism GI prophylaxis Full Code Plan Neurology on consultation Pending brain MRI, echocardiogram, and lipid panel to complete stroke work up Patient has been started on aspirin 81 mg daily, plavix 75 mg daily dual antiplatelet therapy Continue statin therapy Vascular surgery consultation for further evaluation of the left carotid findings Resume all home medications The impression and plan of care has been dictated by Genie Kwon Nurse Practitioner as directed. Dr. Mary MD I have performed a history and physical examination and medical decision making of this patient, discussed the same with the dictator, and agree with the dictators assessment and plan as written, documented as a scribe. Based on total visit time, I have performed more than 50% of this visit. Past Medical History Past Medical History: Atrial Fibrillation, Hypertension, Myocardial Infarction ([place]), Osteoarthritis (OA), Skin Disorder, Thyroid Disorder Additional Past Medical History / Comment(s): DERMATOMYOSITIS. OVERACTIVE BLADDER Last Myocardial Infarction Date:: 04/2007 History of Any Multi-Drug Resistant Organisms: None Reported Past Surgical History: Bladder Surgery, Cardiac Ablation, Heart Catheterization With Stent, Hysterectomy, Orthopedic Surgery Additional Past Surgical History / Comment(s): COLONOSCOPY, LT CAROTID ENDARTERECTOMY, TRK, D & C, L hip replacement Past Anesthesia/Blood Transfusion Reactions: No Reported Reaction Date of Last Stent Placement:: 04/2007 Past Psychological History: No Psychological Hx Reported Smoking Status: Never smoker Past Alcohol Use History: None Reported Past Drug Use History: None Reported - Past Family History Brother(s) Family Medical History: Cancer Medications and Allergies Home Medications Medication Instructions Recorded Confirmed Type Levothyroxine Sodium [Synthroid] 50 mcg PO DAILY 01/22/17 01/27/25 History Metoprolol Succinate (ER) [Toprol 100 mg PO HS 01/22/17 01/27/25 History Xl] Losartan/Hydrochlorothiazide 1 tab PO DAILY 01/27/25 01/27/25 History [Losartan-Hctz 100-25 mg Tab] Pravastatin Sodium [Pravachol] 20 mg PO HS 01/27/25 01/27/25 History allopurinoL [Zyloprim] 100 mg PO HS 01/27/25 01/27/25 History amLODIPine [Norvasc] 10 mg PO DAILY 01/27/25 01/27/25 History Allergies Allergy/AdvReac Type Severity Reaction Status Date / Time Iodinated Contrast Media AdvReac SEVERE Verified 01/27/25 16:51 [Iodinated Contrast Media - PAIN AND Oral and] METAL TASTE IN MOUTH Physical Exam Vitals: Vital Signs Temp Pulse Pulse Resp BP BP Pulse Ox 01/28/25 07:45 97.7 F 69 16 123/75 94 L 01/28/25 02:12 98.4 F 73 16 121/77 97 01/28/25 00:19 97.6 F 87 17 178/112 98 01/27/25 23:06 72 18 174/106 94 L 01/27/25 19:54 82 18 181/102 99 01/27/25 15:56 97.3 F L 75 19 163/91 96 Intake and Output 01/27/25 01/28/25 01/28/25 22:59 06:59 14:59 Intake Total 118 Balance 118 Intake: Oral 118 Other: Voiding Method Toilet # Voids 1 Weight 83.461 kg 83.461 kg Results CBC & Chem 7: 01/27/25 16:41 01/27/25 16:41 Labs: Abnormal Lab Results - Last 24 Hours (Table) 02/26/25 Range/Units 16:41 Carbon Dioxide 32 H (22-30) mmol/L BUN 20 H (7-17) mg/dL Thrombosis Risk Factor Assmnt - Choose All That Apply Each Factor Represents 1 point: Obesity (BMI >25) Each Risk Factor Represents 2 Points: Age 61-74 years Thrombosis Risk Factor Assessment Total Risk Factor Score: 3 Thrombosis Risk Factor Assessment Level: Moderate Risk Assessment and Plan Time with Patient: Less than 30
[2025-01-29 03:44] LABS: Chol/HDL Ratio 4.65 Ratio; LDL Cholesterol,Calculated 82.4 mg/dL (0.0-131.0)
[2025-01-29 09:00] LABS: BUN/Creat Ratio 25.33 Ratio (12.00-20.00); Blood Urea Nitrogen 22.8 mg/dL (9.0-27.0); Carbon Dioxide 28.5 mmol/L (21.6-31.8); Chloride 102 mmol/L (96-109); Glucose 95 mg/dL (70-110); Potassium 3.7 mmol/L (3.5-5.5); Sodium 140 mmol/L (135-145)
[2025-01-29 09:01] LABS: Calcium 9.7 mg/dL (8.7-10.3)
--- NOTE | 2025-01-29 10:25 | MR ---
EXAMINATION TYPE: MR brain wo con DATE OF EXAM: 01/29/2025 COMPARISON: CT brain 2 days ago. HISTORY: Rt arm weakness; stroke TECHNIQUE: Multiplanar, multisequence imaging of the brain and brainstem is performed without IV cont rast. FINDINGS: Diffusion weighted images demonstrate punctate 3 mm focus of increased signal on diffusion-weighted i maging corresponding to diminished signal on ADC mapping with T2 hyperintense focus in the high poste rior left frontal lobe suspicious for area of acute ischemia likely in the premotor cortex just anter ior to the central sulcus which would correlate with patient's symptoms. There is mild/moderate ventricular and sulcal prominence redemonstrated. There are several small foci of T2 hyperintensity seen throughout the white matter bilaterally. Approximately 30 scattered lesion s are seen. Midline structures demonstrate normal morphology. The craniocervical junction appears within normal limits. Normal vascular flow voids are present. The visualized sinuses are clear. Bilateral aphakia i s redemonstrated. IMPRESSION: 1. Small 3 mm focus of acute ischemia posterior left frontal lobe in the premotor cortex. 2. Background mild to moderate diffuse cerebral atrophy and chronic small vessel ischemic change is n oted. [facility], , 01/29/2025 10:23 AM
--- NOTE | 2025-01-29 10:49 | P.PN ---
Subjective Progress Note Date: 01/29/25 Principal diagnosis: Symptomatic carotid stenosis Patient seen and examined today as a follow-up. She denies any focal deficits. No acute changes through the night. Brain MRI shows small 3 mm focus of acute ischemia posterior left frontal lobe and the premotor cortex. Background mild to moderate diffuse cerebral atrophy and chronic small vessel ischemic change noted. Echocardiogram pending. She is on aspirin 81 mg and Plavix 75 mg as well as a atorvastatin 40 mg at at bedtime. Objective - Vital Signs Vital signs: Vital Signs Temp 97.7 F 01/29/25 07:35 Pulse 54 L 01/29/25 07:35 Resp 17 01/29/25 07:35 BP 122/79 01/29/25 07:35 Pulse Ox 94 L 01/29/25 07:35 FiO2 Intake & Output 01/28/25 01/29/25 01/29/25 18:59 06:59 18:59 Intake Total 236 Balance 236 Intake: Oral 236 Other: Voiding Method Toilet Toilet Diaper # Voids 2 2 - Exam General appearance: The patient is alert, oriented, appears in no acute distress. HET: Head is normocephalic and atraumatic. Pupils are equal and reactive. Neck: Supple. Left carotid bruit. Heart: Regular. Lungs: Equal expansion, normal respiratory effort. Abdomen: Soft, nontender, nondistended. Extremities: Normal skin color and turgor. Palpable radial pulses. Palpable DP pulses. Neurological: No focal deficits. Strength and sensation are grossly intact. - Labs CBC & Chem 7: 01/27/25 16:41 01/29/25 03:20 Labs: Abnormal Lab Results - Last 24 Hours (Table) 01/27/25 Range/Units 16:41 Triglycerides 381.00 H (0.00-149.00) mg/dL Cholesterol 202.00 H (0.00-200.00) mg/dL VLDL Cholesterol, Calc 76.20 H (5.00-40.00) mg/dL Assessment and Plan Assessment: 1. Hemodynamically severe left ICA stenosis 2. Acute ischemia posterior left frontal lobe on MRI 3. Right sided weakness resolved 4. History of left ICA stenosis status post carotid endarterectomy 2007 5. Coronary artery disease status postcardiac stent 6. Atrial fibrillation not on anticoagulation, post cardiac ablation Plan: 1. Continue Plavix 75 mg daily, continue aspirin 81 mg daily and statin 2. Echocardiogram pending 3. Cardiology consulted for cardiac clearance for left transcarotid artery revascularization 4. Continue with recommendations from neurology 5. Plan for inpatient left TCAR on 02/02/2025 pending cardiac clearance Thank you for this consultation, we will continue to follow. The impression and plan of care has been dictated as directed. Dr.Cuello Al performed a history and examination of this patient, discussed the same with the dictator. I agree with the dictator's note ,documented as a scribe. Any additional findings or plans will be noted.
--- NOTE | 2025-01-29 11:55 | P.CRDCN ---
History of Present Illness History of present illness: HISTORY OF PRESENT ILLNESS: This is a 74-year-old female with a past medical history significant for coronary artery disease, atrial fibrillation with previous ablation in 2006, hypertension, carotid stenosis with previous left carotid endarterectomy, and hyperlipidemia. Patient used to follow with Dr. Contreras at [place] but states she has not seen a caul fat puller in many years. We have been asked to see the patient in consultation for cardiac clearance. Patient examined at the bedside. Patient presented to the hospital with right sided weakness. Vascular surgery has been consulted for severe left ICA stenosis and are planning for surgical intervention. The patient states that she started having right-sided weakness on Saturday. At the time of examination her symptoms have improved. She currently denies any chest pain or pressure. She denies any shortness of breath. She states that she usually walks for 30 minutes a day on a treadmill without any difficulty. She states she has not had any recent cardiac testing including a stress test. Additionally, patient states she is not taking any anticoagulation for her history of atrial fibrillation. She was taking aspirin 81 mg daily at home. DIAGNOSTICS: - EKG reveals sinus mechanism with nonspecific ST-T wave changes. No signs of acute ischemia. - CT the brain: Negative for intracranial hemorrhage or midline shift - MRI of the brain: Small 3 mm focus of acute ischemia posterior left frontal lobe in the premotor cortex. Background mild to moderate diffuse cerebral atrophy and chronic small vessel ischemic changes. - Laboratory data: WBC 5.1. Hemoglobin 14.6. Platelet count 198. Sodium 140. Potassium 3.7. BUN 22.8. Creatinine 0.9. Triglycerides 381. Total cholesterol 202. LDL 82.4. HDL 43.4. TSH 3.910. - Current home cardiac medications include pravastatin 20 mg at night, losartanhydrochlorothiazide 100-25 mg daily, amlodipine 10 mg daily, metoprolol succinate 100 mg at night - No previous echocardiogram, stress test, or cardiac catheterization available in EMR for review REVIEW OF SYSTEMS: At the time of my exam: CONSTITUTIONAL: Denies fever or chills. HEENT: Denies blurred vision, vision changes, or eye pain. Denies hemoptysis CARDIOVASCULAR: Denies chest pain. Denies orthopnea. Denies PND. Denies palpitations RESPIRATORY: Denies shortness of breath. GASTROINTESTINAL: Denies abdominal pain. Denies nausea or vomiting. HEMATOLOGIC: Denies bleeding disorders. GENITOURINARY: Denies any blood in urine. SKIN: Denies pruitis. Denies rash. PHYSICAL EXAM: VITAL SIGNS: Reviewed. GENERAL: Well-developed in no acute distress. HEENT: Head is normocephalic. Pupils are equal, round. Sclerae anicteric. Mucous membranes of the mouth are moist. Neck supple. No JVD or thyromegaly. Left carotid bruit noted. LUNGS: Respirations even and unlabored. Lungs essentially clear to auscultation bilaterally. HEART: Regular rate and rhythm. S1 and S2 heard. ABDOMEN: Soft. Nondistended. Nontender. EXTREMITIES: Normal range of motion. No clubbing or cyanosis. Peripheral pulses intact. No lower extremity edema NEUROLOGIC: Awake and alert. Oriented x 3. ASSESSMENT: Right sided weakness Acute CVA, MRI positive for acute ischemia posterior left frontal lobe in the premotor cortex Severe left ICA stenosis, 90% Coronary artery disease with previous stenting, details unknown Paroxysmal atrial fibrillation with previous ablation, 2006, not maintained on anticoagulation outpatient Hypertension Hyperlipidemia History of carotid stenosis with previous left carotid endarterectomy PLAN: Obtain 2D echo to assess cardiac structure and function Continue dual antiplatelet therapy with aspirin and Plavix Discontinue Pravachol. Begin atorvastatin 40 mg at night Continue additional cardiac medications including amlodipine, losartanhydrochlorothiazide, and metoprolol Patient is at intermediate to high risk to undergo surgery from a cardiac perspective. However there are no absolute contraindications. Recommend eventual outpatient stress testing as patient has not followed up with a caul fat puller in many years Recommend event monitor from [facility] at the time of discharge to assess for atrial fibrillation. Would recommend that patient is anticoagulated due to her history of atrial fibrillation. However will reevaluate this after her surgical intervention. Continue telemetry monitoring Further recommendations pending patient course Nurse practitioner note has been reviewed by physician. Signing provider agrees with the documented findings, assessment, and plan of care documented by PAN TANK WORKER as a scribe. Past Medical History Past Medical History: Atrial Fibrillation, Hypertension, Myocardial Infarction ([place]), Osteoarthritis (OA), Skin Disorder, Thyroid Disorder Additional Past Medical History / Comment(s): DERMATOMYOSITIS. OVERACTIVE BLADDER Last Myocardial Infarction Date:: 04/2007 History of Any Multi-Drug Resistant Organisms: None Reported Past Surgical History: Bladder Surgery, Cardiac Ablation, Heart Catheterization With Stent, Hysterectomy, Orthopedic Surgery Additional Past Surgical History / Comment(s): COLONOSCOPY, LT CAROTID ENDARTERECTOMY, TRK, D & C, L hip replacement Past Anesthesia/Blood Transfusion Reactions: No Reported Reaction Date of Last Stent Placement:: 04/2007 Past Psychological History: No Psychological Hx Reported Smoking Status: Never smoker Past Alcohol Use History: None Reported Past Drug Use History: None Reported - Past Family History Brother(s) Family Medical History: Cancer Medications and Allergies Home Medications Medication Instructions Recorded Confirmed Type Levothyroxine Sodium [Synthroid] 50 mcg PO DAILY 01/22/17 01/27/25 History Metoprolol Succinate (ER) [Toprol 100 mg PO HS 01/22/17 01/27/25 History Xl] Losartan/Hydrochlorothiazide 1 tab PO DAILY 01/27/25 01/27/25 History [Losartan-Hctz 100-25 mg Tab] Pravastatin Sodium [Pravachol] 20 mg PO HS 01/27/25 01/27/25 History allopurinoL [Zyloprim] 100 mg PO HS 01/27/25 01/27/25 History amLODIPine [Norvasc] 10 mg PO DAILY 01/27/25 01/27/25 History Allergies Allergy/AdvReac Type Severity Reaction Status Date / Time Iodinated Contrast Media AdvReac SEVERE Verified 01/27/25 16:51 [Iodinated Contrast Media - PAIN AND Oral and] METAL TASTE IN MOUTH Physical Exam Vitals: Vital Signs Temp Pulse Resp BP Pulse Ox 01/29/25 07:35 97.7 F 54 L 17 122/79 94 L 01/29/25 01:50 97.9 F 59 L 16 138/90 97 01/28/25 20:18 97.6 F 71 18 122/81 96 01/28/25 19:45 18 01/28/25 19:40 98.0 F 67 17 127/87 95 01/28/25 13:45 97.9 F 73 20 137/94 93 L Intake and Output 01/28/25 01/29/25 01/29/25 22:59 06:59 14:59 Intake Total 118 Balance 118 Intake: Oral 118 Other: Voiding Method Toilet Toilet Diaper Diaper # Voids 2 2 Results 01/27/25 16:41 01/29/25 03:20 Lipids 01/27/25 Range/Units 16:41 Triglycerides 381.00 H (0.00-149.00) mg/dL Cholesterol 202.00 H (0.00-200.00) mg/dL HDL Cholesterol 43.40 (40.00-60.00) mg/dL Cholesterol/HDL Ratio 4.65 Ratio Comprehensive Metabolic Panel 01/29/25 Range/Units 03:20 Sodium 140 (135-145) mmol/L Potassium 3.7 (3.5-5.5) mmol/L Chloride 102 (96-109) mmol/L Carbon Dioxide 28.5 (21.6-31.8) mmol/L BUN 22.8 (9.0-27.0) mg/dL Creatinine 0.9 (0.6-1.5) mg/dL Glucose 95 (70-110) mg/dL Calcium 9.7 (8.7-10.3) mg/dL Current Medications Generic Name Dose Route Start Last Admin Trade Name Freq PRN Reason Stop Dose Admin Allopurinol 100 mg 01/28/25 21:00 01/28/25 21:29 Allopurinol 100 Mg Tab PO 100 mg HS VERONICA Administration Amlodipine Besylate 10 mg 01/28/25 09:00 01/29/25 09:05 Amlodipine 10 Mg Tab PO 10 mg DAILY VERONICA Administration Aspirin 81 mg 01/28/25 17:30 01/29/25 09:04 Aspirin 81 Mg PO 81 mg DAILY VERONICA Administration Clopidogrel Bisulfate 75 mg 01/28/25 15:45 01/29/25 09:05 Clopidogrel 75 Mg Tab PO 75 mg DAILY VERONICA Administration HCTZ/Losartan Potassium 2 each 01/28/25 09:00 01/29/25 09:05 Losartan-Hctz 50-12.5 Mg 1 Each Tab PO 2 each DAILY VERONICA Administration Heparin Sodium (Porcine) 5,000 unit 01/28/25 21:00 01/29/25 09:05 Heparin Sodium,Porcine 5,000 Unit/Ml 1 Ml Vial SQ 5,000 unit Q12HR VERONICA Administration Hydralazine HCl 10 mg 01/27/25 23:15 Hydralazine Hcl 20 Mg/Ml 1 Ml Vial IVP Q6HR PRN Blood Pressure - High Sodium Chloride 1,000 mls @ 20 mls/hr 01/27/25 20:15 01/28/25 20:49 Saline 0.9% IV 20 mls/hr .Q24H VERONICA Administration Levothyroxine Sodium 50 mcg 02/27/25 06:30 01/29/25 06:47 Levothyroxine 50 Mcg Tab PO 50 mcg DAILY@0630 VERONICA Administration Metoprolol Succinate 100 mg 01/28/25 21:00 01/28/25 21:29 Metoprolol Succinate (Er) 100 Mg Tab.Er.24h PO 100 mg HS VERONICA Administration Naloxone HCl 0.2 mg 01/27/25 20:02 Naloxone 0.4 Mg/Ml 1 Ml Vial IV Q2M PRN Opioid Reversal Pravastatin Sodium 20 mg 01/28/25 21:00 01/28/25 21:30 Pravastatin Sodium 20 Mg Tab PO 20 mg HS VERONICA Administration Intake and Output 01/28/25 01/29/25 01/29/25 22:59 06:59 14:59 Intake Total 118 Balance 118 Intake: Oral 118 Other: Voiding Method Toilet Toilet Diaper Diaper # Voids 2 2 01/27/25 16:41 01/29/25 03:20
--- NOTE | 2025-01-29 13:21 | CA ---
Transthoracic Echo Report Name: Stacey Casarez Age: 74 Gender: F : 1950 Exam Date: 01/29/2025 11:31 Exam Location: [facility] Echo Ht (in): 65 Wt (lb): 184 Ordering Physician: Earl Rey MD Attending/Referring Phys: Market Investigator Rashi Tirado RDCS Procedure CPT: Indications: stroke Cardiac Hx: Stent Technical Quality: Good Contrast 1: Total Dose (mL): Contrast 2: Total Dose (mL): MEASUREMENTS (Male / Female) Normal Values 2D ECHO LV Diastolic Diameter PLAX 5.3 cm 4.2 - 5.9 / 3.9 - 5.3 cm LV Systolic Diameter PLAX 4.0 cm IVS Diastolic Thickness 1.0 cm 0.6 - 1.0 / 0.6 - 0.9 cm LVPW Diastolic Thickness 1.0 cm 0.6 - 1.0 / 0.6 - 0.9 cm LV Relative Wall Thickness 0.4 RV Internal Dim ED PLAX 3.7 cm LVOT Diameter 1.6 cm LA Systolic Diameter LX 4.7 cm 3.0 - 4.0 / 2.7 - 3.8 cm LV Diastolic Volume MOD BP 104.3 cm??? 67 - 155 / 56 - 104 cm??? LV Systolic Volume MOD BP 47.6 cm??? - / 19 - 49 cm??? LV Ejection Fraction MOD BP 54.3 % >= 55 % LV Cardiac Index MOD BP 1714.8 cm???/min???m??? LV Diastolic Volume MOD 4C 114.1 cm??? LV Systolic Volume MOD 4C 49.8 cm??? LV Ejection Fraction MOD 4C 56.4 % LV Cardiac Index MOD 4C 1945.6 cm???/min???m??? LV Diastolic Length 4C 8.1 cm LV Systolic Length 4C 6.8 cm LV Diastolic Volume MOD 2C 88.4 cm??? LV Systolic Volume MOD 2C 45.8 cm??? LV Ejection Fraction MOD 2C 48.2 % LV Cardiac Index MOD 2C 1289.9 cm???/min???m??? LV Diastolic Length 2C 7.5 cm LV Systolic Length 2C 6.8 cm LA Volume 88.6 cm??? 18 - 58 / 22 - 52 cm??? LA Volume Index 44.7 cm???/m??? 16 - 28 cm???/m??? DOPPLER MV Area PHT 3.7 cm??? Mitral E Point Velocity 59.6 cm/s Mitral A Point Velocity 24.6 cm/s Mitral E to A Ratio 2.4 MV Deceleration Time 202.7 ms TR Peak Velocity 199.6 cm/s TR Peak Gradient 15.9 mmHg Right Atrial Pressure 10.0 mmHg Pulmonary Artery Systolic Pressu 25.9 mmHg Right Ventricular Systolic Press 25.9 mmHg FINDINGS Left Ventricle Left ventricular ejection fraction is estimated at 50-55%. Mildly increased septal wall thickness. Mildly increased posterior wall thickness. No obvious regional wall motion abnormalities. Right Ventricle Normal right ventricular size and function. . Right ventricular systolic pressure within normal limits. Right Atrium Normal right atrial size. Left Atrium Moderate left atrial dilatation Mitral Valve Mitral valve thickened. No mitral stenosis. Mild mitral regurgitation. Aortic Valve Trileaflet aortic valve. Thickened aortic valve without stenosis. Tricuspid Valve Structurally normal tricuspid valve. No tricuspid stenosis. Trace tricuspid regurgitation. Pulmonic Valve Structurally normal pulmonic valve. No pulmonic stenosis. No pulmonic regurgitation. Pericardium No pericardial effusion. Aorta Normal size aortic root and proximal ascending aorta. CONCLUSIONS LVEF 50 to 55% No obvious regional wall motion abnormality Mild concentric LVHNormal right ventricular size and function. Moderate left atrial dilatation. Mild mitral regurgitation. Previewed by: Dr Shaka Coleman (Electronically Signed) Final Date: 29 January 2025 13:20
--- NOTE | 2025-01-29 15:41 | P.PN ---
Subjective Progress Note Date: 01/29/25 I am following-up with the patient and she feels she is back to baseline. Denies any new neurological issues. She just go back from MRI. Objective - Vital Signs Vital signs: Vital Signs Temp 97.7 F 01/29/25 13:43 Pulse 60 01/29/25 13:43 Resp 18 01/29/25 13:43 BP 144/86 01/29/25 13:43 Pulse Ox 96 01/29/25 13:43 FiO2 Intake & Output 01/28/25 01/29/25 01/29/25 18:59 06:59 18:59 Intake Total 236 598 Balance 236 598 Intake: Oral 236 598 Other: Voiding Method Toilet Toilet Toilet Diaper Diaper # Voids 2 2 2 - Exam GENERAL: The patient is lying in bed and is not in acute distress. NEUROLOGICAL: Higher mental function: The patient is awake, alert, oriented to self, place and time. Patient is following commands. No aphasia and no neglect. Cranial nerves: The pupils are round, equal and reactive to light and accommodation. Visual tanner are full to confrontation throughout. Extraocular movement is intact no nystagmus is noted. Facial sensation is normal to touch throughout. The facial strength is normal throughout. Hearing is normal bilaterally to hand rub. Tongue is midline and moved [id number] without any difficulty. No dysarthria is noted. Shoulder shrug is normal bilaterally. Motor: The strength is 5 over 5 throughout. Normal tone and bulk. Cerebellum: Normal finger to nose heel to kelley bilaterally. Sensation: Sensation is normal to touch throughout. Reflexes (right/left): 2+ throughout. Plantars are downgoing bilaterally. Some of the workup during this hospital visit consisted of: Lipid panel: TG 381, Cholestrol 202, LDL 82 and HDL 43. TSH: 3.91 CT of the head is reported as no acute intracranial hemorrhage or midline shift. I personally reviewed the CT head and agree with report CT angiography of the head and neck: No large vessel occlusion or aneurysm at the level of [place] of [place]. Postsurgical changes at the left neck or carotid bulb level. There appears to be significant stenosis near 90% at the origin of the surgical treated left internal carotid artery. - Labs CBC & Chem 7: 01/27/25 16:41 01/29/25 03:20 Labs: Abnormal Lab Results - Last 24 Hours (Table) 01/27/25 01/29/25 01/29/25 Range/Units 16:41 03:20 03:20 BUN/Creatinine Ratio 25.33 H (12.00-20.00) Ratio NT-Pro-B Natriuret Pep 170 H (0-125) pg/mL Triglycerides 381.00 H (0.00-149.00) mg/dL Cholesterol 202.00 H (0.00-200.00) mg/dL VLDL Cholesterol, Calc 76.20 H (5.00-40.00) mg/dL Assessment and Plan Assessment: This is a 74-year-old woman who presented emergency department because of right upper extremity numbness and weakness. She stated that she had a week ago and episode of right hand dexterity issue then yesterday right upper extremity weakness and numbness that resolved. Transient Ischemic stroke (TIA) due to likely symptomatic left ICA stenosis (90% stenosis) Dyslipidemia Remote history of left ICA stenosis that was significant s/p carotid endartectomy. History of MD in her 50s History of atrial fibrillation status post ablation also thus remote Plan: I resumed her home medication of aspirin 81 mg and started the patient on Plavix 75 mg. Patient is on pravastatin 20 mg nightly Just completed MRI Brain and pending results. Pending 2D echo. Vascular surgery team is contulted for left ICA stenosis and preliminary surgery on 02/02/2025 for TCAR. Continue neurochecks Cardiac monitoring Recommend permissive hypertension for 24 to 40 hours PT and OT are not needed since the patient is back to baseline and has no deficit. Will defer the rest of the medical management to primary and other specialist For DVT prophylaxis: On subcu heparin The plan is discussed with patient and primary team N.P. Dr. Lance will resume neurology service tomorrow A.M. Time with Patient: Less than 30
[2025-01-29] MEDS: ATORVASTATIN 40 MG TAB PO SCH (21:09)
--- NOTE | 2025-01-30 08:15 | P.PN ---
Subjective Progress Note Date: 01/30/25 This is a 74-year-old female with medical history significant for atrial fibrillation, hypertension, hypothyroidism, prior cardiac stenting and cardiac ablation for the atrial fibrillation patient also underwent left carotid endarterectomy. Comes into the hospital with complaints of right upper extremity weakness that resolved on its own. This happened a couple days ago. 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 Symptoms resolved. Than yesterday patient states that she has had 3- 4 episodes of tingling in the right arm and her arm was essentially limp. This again resolved on its own. She was planning to have a CT angiography of her head and neck on an outpatient basis but because of the continued symptoms came into the ER for further evaluation. Brain CT reveals no acute intracranial hemorrhage or midline shift. CT angiography reveals no large vessel occlusion or aneurysm at the level of the [place] of [place]. There is postsurgical changes left neck or carotid bulb although there appears to be significant stenosis near 90% at the origin of the surgically treated left internal carotid artery advised further investigation directed catheter angiogram to better evaluate and/or treat. There is moderate to severe disc space narrowing, endplate sclerosis at the C5-C6 level moderate to space narrowing at C6-C7. Her CBC is completely unremarkable sodium of 142 potassium 3.9, BUN of 20 creatinine of 0.90. Patient was admitted to the hospital to consult placed to neurology and vascular surgery. She does state that she is supposed to be taking aspirin 81 mg daily however does not remember to take it daily. She has had no issues with her atrial fibrillation since the ablation in 2005. Denies any smoking or alcohol use. 01/29/2025 Patient evaluated on the observation unit. Continues to report the right sided symptoms are resolved. She has been started on aspirin and plavix. Brain MRI reveals small 3 mm focus of acute ischemia posterior left frontal lobe in the premotor cortex. Background mild to moderate diffuse cerebral atrophy and chronic small vessel ischemic change is noted. Echocardiogram reveals EF 50-55% mild concentric LVH moderate left atrial dilatation and mild MR. REVIEW OF SYSTEMS: CONSTITUTIONAL: No fever, no malaise, no fatigue. HEENT: No recent visual problems or hearing problems. Denied any sore throat. CARDIOVASCULAR: No chest pain, orthopnea, PND, no palpitations, no syncope. PULMONARY: No shortness of breath, no cough, no hemoptysis. GASTROINTESTINAL: No diarrhea, no nausea, no vomiting, no abdominal pain. NEUROLOGICAL: No headaches, no weakness, no numbness. PHYSICAL EXAMINATION: GENERAL: The patient is alert and oriented x3, not in any acute distress. Well developed, well nourished. HEENT: Pupils are round and equally reacting to light. EOMI. No scleral icterus. No conjunctival pallor. Normocephalic, atraumatic. No pharyngeal erythema. No thyromegaly. CARDIOVASCULAR: S1 and S2 present. No murmurs, rubs, or gallops. PULMONARY: Chest is clear to auscultation, no wheezing or crackles. ABDOMEN: Soft, nontender, nondistended, normoactive bowel sounds. No palpable organomegaly. MUSCULOSKELETAL: No joint swelling or deformity. EXTREMITIES: No cyanosis, clubbing, or pedal edema. NEUROLOGICAL: Gross neurological examination did not reveal any focal deficits. SKIN: No rashes. Assessment and Plan Right sided parasthesias due to acuts ischemic stroke, symptoms have resolved at this time small 3 mm focus of acute ischemia posterior left frontal lobe in the premotor cortex Severe left ICA stenosis 90% Hx of left carotid endarectomy many years ago History of atrial fibrillation with cardiac ablation in 2005, not on anticoagulation History of coronary artery disease with prior cardiac stenting Hypertension Hypothyroidism GI prophylaxis Full Code Plan Neurology on consultation Pending brain MRI, echocardiogram, and lipid panel to complete stroke work up Patient has been started on aspirin 81 mg daily, plavix 75 mg daily dual antiplatelet therapy Continue statin therapy Vascular surgery planning for surgical intervention on Saturday Because of the positive MRI findings patient will be upgraded to 3 south The impression and plan of care has been dictated by Genie Kwon, Nurse Practitioner as directed. Dr. Mary MD I have performed a history and physical examination and medical decision making of this patient, discussed the same with the dictator, and agree with the dictators assessment and plan as written, documented as a scribe. Based on total visit time, I have performed more than 50% of this visit. Objective - Vital Signs Vital signs: Vital Signs Temp 97.6 F 01/30/25 04:00 Pulse 59 L 01/30/25 04:00 Resp 16 01/30/25 04:00 BP 125/82 01/30/25 04:00 Pulse Ox 95 01/30/25 04:00 FiO2 Intake & Output 01/29/25 01/30/25 01/30/25 18:59 06:59 18:59 Intake Total 838 5 Balance 838 5 Weight 82 kg Intake: IV 5 Invasive Line 1 5 Oral 838 Other: Voiding Method Toilet Toilet Diaper Diaper # Voids 2 1 # Bowel Movements 1 - Labs CBC & Chem 7: 01/27/25 16:41 01/29/25 03:20 Labs: Abnormal Lab Results - Last 24 Hours (Table) 01/29/25 01/29/25 Range/Units 03:20 03:20 BUN/Creatinine Ratio 25.33 H (12.00-20.00) Ratio NT-Pro-B Natriuret Pep 170 H (0-125) pg/mL Assessment and Plan Time with Patient: Less than 30
--- NOTE | 2025-01-30 11:36 | P.PN ---
Subjective Progress Note Date: 01/30/25 Patient seen and examined. Doing well. No complaints or further focal deficits. Objective - Vital Signs Vital signs: Vital Signs Temp 96.6 F L 01/30/25 11:13 Pulse 60 01/30/25 11:13 Resp 16 01/30/25 11:13 BP 146/85 01/30/25 11:13 Pulse Ox 95 01/30/25 11:13 FiO2 Intake & Output 01/29/25 01/30/25 01/30/25 18:59 06:59 18:59 Intake Total 838 250 Balance 838 250 Weight 82 kg Intake: IV 10 Invasive Line 1 10 Oral 838 240 Other: Voiding Method Toilet Toilet Toilet Diaper Diaper Diaper # Voids 2 1 1 # Bowel Movements 1 1 - Exam General appearance: The patient is alert, oriented, appears in no acute distress. HET: Head is normocephalic and atraumatic. Pupils are equal and reactive. Neck: Supple. Left carotid bruit. Heart: Regular. Lungs: Equal expansion, normal respiratory effort. Abdomen: Soft, nontender, nondistended. Extremities: Normal skin color and turgor. Palpable radial pulses. Palpable DP pulses. Neurological: No focal deficits. Strength and sensation are grossly intact. - Labs CBC & Chem 7: 01/27/25 16:41 01/29/25 03:20 Labs: Abnormal Lab Results - Last 24 Hours (Table) 01/29/25 Range/Units 03:20 NT-Pro-B Natriuret Pep 170 H (0-125) pg/mL Assessment and Plan Assessment: 1. Hemodynamically severe left ICA stenosis, Symptomatic per MRIv 2. Acute ischemia posterior left frontal lobe on MRI 3. Right sided weakness resolved 4. History of left ICA stenosis status post carotid endarterectomy 2007 5. Coronary artery disease status postcardiac stent 6. Atrial fibrillation not on anticoagulation, post cardiac ablation Plan: Long discussion had with patient about plan and options. Given her recurrent stenosis, we will plan to go forward with a transcarotid artery rev ascularization and stent. Patient currently on aspirin and Plavix. Continue through the surgery. Risks and benefits discussed of transfemoral, transcarotid artery revascularization as well as open carotid endarterectomy. She seemingly understands all options and is willing to proceed
--- NOTE | 2025-01-30 13:14 | P.PN ---
Subjective Progress Note Date: 01/30/25 HISTORY OF PRESENT ILLNESS: This is a 74-year-old female with a past medical history significant for co ronary artery disease, atrial fibrillation with previous ablation in 2006, hypertension, carotid stenosis with previous left carotid endarterectomy, and hyperlipidemia. Patient used to follow with Dr. Contreras at [facility] but states she has not seen a continuing education director in many years. We have been asked to see the patient in consultation for cardiac clearance. Patient examined at the bedside. Patient presented to the hospital with right sided weakness. Vascular surgery has been consulted for severe left ICA stenosis and are planning for surgical intervention. The patient states that she started having right-sided weakness on Saturday. At the time of examination her symptoms have improved. She currently denies any chest pain or pressure. She denies any shortness of breath. She states that she usually walks for 30 minutes a day on a treadmill without any difficulty. She states she has not had any recent cardiac testing including a stress test. Additionally, patient states she is not taking any anticoagulation for her history of atrial fibrillation. She was taking aspirin 81 mg daily at home. DIAGNOSTICS: - EKG reveals sinus mechanism with nonspecific ST-T wave changes. No signs of acute ischemia. - CT the brain: Negative for intracranial hemorrhage or midline shift - MRI of the brain: Small 3 mm focus of acute ischemia posterior left frontal lobe in the premotor cortex. Background mild to moderate diffuse cerebral atrophy and chronic small vessel ischemic changes. - Laboratory data: WBC 5.1. Hemoglobin 14.6. Platelet count 198. Sodium 140. Potassium 3.7. BUN 22.8. Creatinine 0.9. Triglycerides 381. Total cholesterol 202. LDL 82.4. HDL 43.4. TSH 3.910. - Current home cardiac medications include pravastatin 20 mg at night, losartanhydrochlorothiazide 100-25 mg daily, amlodipine 10 mg daily, metoprolol succinate 100 mg at night - No previous echocardiogram, stress test, or cardiac catheterization available in EMR for review 01/30 Patient and seen on the cardiac stepdown unit. Patient denies chest pain or shortness of breath. She feels she is back to her baseline. She has felt heart racing but none now. Patient is not currently on anticoagulation for A-fib. Echocardiogram reviewed with the patient. BP is stable. She is scheduled for TCAR on Saturday. We will plan to start Lovenox until surgery. Echocardiogram reveals EF 50 to 55%. No obvious regional wall motion abnormality. Mild concentric LV H. Moderate left atrial dilatation. Mild mi tral regurgitation. PHYSICAL EXAM: VITAL SIGNS: Reviewed. GENERAL: Well-developed in no acute distress. HEENT: Head is normocephalic. Pupils are equal, round. Sclerae anicteric. Mucous membranes of the mouth are moist. Neck supple. No JVD or thyromegaly. Left carotid bruit noted. LUNGS: Respirations even and unlabored. Lungs essentially clear to auscultation bilaterally. HEART: Regular rate and rhythm. S1 and S2 heard. ABDOMEN: Soft. Nondistended. Nontender. EXTREMITIES: Normal range of motion. No clubbing or cyanosis. Peripheral pulses intact. No lower extremity edema NEUROLOGIC: Awake and alert. Oriented x 3. ASSESSMENT: Right sided weakness Acute CVA, MRI positive for acute ischemia posterior left frontal lobe in the premotor cortex Severe left ICA stenosis, 90% Coronary artery disease with previous stenting, details unknown Paroxysmal atrial fibrillation with previous ablation, 2006, not maintained on anticoagulation outpatient Hypertension Hyperlipidemia History of carotid stenosis with previous left carotid endarterectomy PLAN: Continue dual antiplatelet therapy with aspirin and Plavix Continue atorvastatin 40 mg at night Continue additional cardiac medications including amlodipine, losartanhydrochlorothiazide, and metoprolol Start patient on Lovenox 80 mg every 12 hours. Patient is at intermediate to high risk to undergo surgery from a cardiac perspective. However there are no absolute contraindications. Recommend eventual outpatient stress testing as patient has not followed up with a continuing education director in many years Recommend event monitor from [facility] at the time of discharge to assess for atrial fibrillation. Continue telemetry monitoring Further recommendations pending patient course Nurse practitioner note has been reviewed by physician. Signing provider agrees with the documented findings, assessment, and plan of care documented by [employer] as a scribe. Objective - Vital Signs Vital signs: Vital Signs Temp 96.6 F L 01/30/25 11:13 Pulse 60 01/30/25 11:13 Resp 16 01/30/25 11:13 BP 146/85 01/30/25 11:13 Pulse Ox 95 01/30/25 11:13 FiO2 Intake & Output 01/29/25 01/30/25 01/30/25 18:59 06:59 18:59 Intake Total 838 250 Balance 838 250 Weight 82 kg Intake: IV 10 Invasive Line 1 10 Oral 838 240 Other: Voiding Method Toilet Toilet Toilet Diaper Diaper Diaper # Voids 2 1 1 # Bowel Movements 1 1 - Labs CBC & Chem 7: 01/27/25 16:41 01/29/25 03:20 Labs: Abnormal Lab Results - Last 24 Hours (Table) 01/29/25 Range/Units 03:20 NT-Pro-B Natriuret Pep 170 H (0-125) pg/mL
--- NOTE | 2025-01-30 16:02 | P.PN ---
Subjective Progress Note Date: 01/30/25 Patient was initially seen by Dr. Earl Rey. Please refer to his note for details. Patient is a 74-year-old female with transient right arm weakness and numbness. Patient has symptomatic left ICA. Patient undergoing carotid artery surgery on Saturday. Patient was seen for a follow-up. Patient is laying comfortably in the bed. Offers no complaints. Some of the workup during this hospital visit consisted of: Lipid panel: TG 381, Cholestrol 202, LDL 82 and HDL 43. TSH: 3.91 CT of the head is reported as no acute intracranial hemorrhage or midline shift. I personally reviewed the CT head and agree with report CT angiography of the head and neck: No large vessel occlusion or aneurysm at the level of [place] of [place]. Postsurgical changes at the left neck or carotid bulb level. There appears to be significant stenosis near 90% at the origin of the surgical treated left internal carotid artery. Objective - Vital Signs Vital signs: Vital Signs Temp 96.6 F L 01/30/25 11:13 Pulse 60 01/30/25 11:13 Resp 16 01/30/25 11:13 BP 146/85 01/30/25 11:13 Pulse Ox 95 01/30/25 11:13 FiO2 Intake & Output 01/29/25 01/30/25 01/30/25 18:59 06:59 18:59 Intake Total 838 490 Balance 838 490 Weight 82 kg Intake: IV 10 Invasive Line 1 10 Oral 838 480 Other: Voiding Method Toilet Toilet Toilet Diaper Diaper Diaper # Voids 2 1 1 # Bowel Movements 1 1 - Exam On examination, patient is an elderly female, laying in the bed, very comfortably in no acute distress. Speech and language functions are completely normal. Mentation normal. Cranial nerves pupils are equal, round and reactive light, visual tanner are full, face is symmetric and tongue protrudes to midline. On muscle strength testing there is no pronator drift and the strength is normal in arms and legs. Sensory touch is equal with no neglect. No ataxia for [id number] testing on either side. - Labs CBC & Chem 7: 01/27/25 16:41 01/29/25 03:20 Assessment and Plan Assessment: This is a 74-year-old woman who presented emergency department because of right upper extremity numbness and weakness. She stated that she had a week ago and episode of right hand dexterity issue then yesterday right upper extremity weakness and numbness that resolved. Clinically transient Ischemic stroke (TIA) due to likely symptomatic left ICA stenosis (90% stenosis), however MRI confirmed an acute stroke. MRI of the brain confirmed small 3 mm focus of acute ischemia posterior left frontal lobe, and the premotor cortex. Dyslipidemia Remote history of left ICA stenosis that was significant s/p carotid endartectomy. History of CA in her 50s History of atrial fibrillation status post ablation also thus remote Plan: Patient has been on resumed her home medication of aspirin [address] Rey started the patient on Plavix 75 mg. Patient is on pravastatin 20 mg nightly MRI of the brain without contrast revealed small 3 mm focus of acute ischemia posterior left frontal lobe, and the premotor cortex. Background mild to moderate diffuse cerebral atrophy and chronic small vessel ischemic change noted. I personally reviewed MRI, agree with the findings. 2D echo revealed LVEF 50 to 55%. Mildly increased septal wall thickness. No obvious regional wall motion abnormalities. Moderate left atrial dilation. Mild MR. Vascular surgery team is contulted for symptomatic left ICA stenosis and probable surgery on 02/02/2025 for TCAR. Continue neurochecks Cardiac monitoring Recommend permissive hypertension for 24 to 40 hours PT and OT are not needed since the patient is back to baseline and has no deficit. Will defer the rest of the medical management to primary and other specialist For DVT prophylaxis: Patient on Lovenox 80 mg subcu every 12 hour.
[2025-01-30] MEDS: ENOXAPARIN 80 MG/0.8 ML SYRINGE SQ SCH (20:10)
--- NOTE | 2025-01-31 01:01 | P.PN ---
Subjective Progress Note Date: 01/30/25 This is a 74-year-old female with medical history significant for atrial fibrillation, hypertension, hypothyroidism, prior cardiac stenting and cardiac ablation for the atrial fibrillation patient also underwent left carotid endarterectomy. Comes into the hospital with complaints of right upper extrem ity weakness that resolved on its own. This happened a couple days ago. States she noticed she was unable to lease picker an object off a table with her right hand. Symptoms resolved. Than yesterday patient states that she has had 3-4 episodes of tingling in the right arm and her arm was essentially limp. This again resolved on its own. She was planning to have a CT angiography of her head and neck on an outpatient basis but because of the continued symptoms came into the ER for further evaluation. Brain CT reveals no acute intracranial hemorrhage or midline shift. CT angiography reveals no large vessel occlusion or aneurysm at the level of the [place] of [place]. There is postsurgical changes left neck or carotid bulb although there appears to be significant stenosis near 90% at the origin of the surgically treated left internal carotid artery advised further investigation directed catheter angiogram to better evaluate and/or treat. There is moderate to severe disc space narrowing, endplate sclerosis at the C5- C6 level moderate to space narrowing at C6-C7. Her CBC is completely unre markable sodium of 142 potassium 3.9, BUN of 20 creatinine of 0.90. Patient was admitted to the hospital to consult placed to neurology and vascular surgery. She does state that she is supposed to be taking aspirin 81 mg daily however does not remember to take it daily. She has had no issues with her atrial fibrillation since the ablation in 2005. Denies any smoking or alcohol use. 01/29/2025 Patient evaluated on the observation unit. Continues to report the right sided symptoms are resolved. She has been started on aspirin and plavix. Brain MRI reveals small 3 mm focus of acute ischemia posterior left frontal lobe in the premotor cortex. Background mild to moderate diffuse cerebral atrophy and chronic small vessel ischemic change is noted. Echocardiogram reveals EF 50-55% mild concentric LVH moderate left atrial dilatation and mild MR. 02/07/2025 Patient is seen in follow-up today being followed by multiple consultations including neurology, vascular surgery, cardiology. Plan is for surgical intervention with vascular surgery on 02/02/2025 TCAR. Patient reports to feeling relatively well and reports symptoms have resolved. Patient to continue on telemetry monitoring and will continue current regimen. Patient is up and walking and encouraged to increase activity as tolerated and sit up in the chair more frequently. Patient denies any chest pain, shortness of breath, or generalized weakness. REVIEW OF SYSTEMS: CONSTITUTIONAL: No fever, no malaise, no fatigue. HEENT: No recent visual problems or hearing problems. Denied any sore throat. CARDIOVASCULAR: No chest pain, orthopnea, PND, no palpitations, no syncope. PULMONARY: No shortness of breath, no cough, no hemoptysis. GASTROINTESTINAL: No diarrhea, no nausea, no vomiting, no abdominal pain. NEUROLOGICAL: No headaches, no weakness, no numbness. PHYSICAL EXAMINATION: GENERAL: The patient is alert and oriented x3, not in any acute distress. Well developed, well nourished. Elderly appearing, obese HEENT: Pupils are round and equally reacting to light. EOMI. No scleral icterus. No conjunctival pallor. Normocephalic, atraumatic. No pharyngeal erythema. No thyromegaly. CARDIOVASCULAR: S1 and S2 muffled, irregular PULMONARY: Diminished breath sounds bilaterally otherwise chest is clear to au scultation, no wheezing or crackles. ABDOMEN: Soft, obese, nontender, nondistended, normoactive bowel sounds. No palpable organomegaly. MUSCULOSKELETAL: No joint swelling or deformity. EXTREMITIES: No cyanosis, clubbing, or pedal edema. NEUROLOGICAL: Gross neurological examination did not reveal any focal deficits. SKIN: No rashes. Assessment: Right sided parasthesias due to acuts ischemic stroke, symptoms have resolved at this time small 3 mm focus of acute ischemia posterior left frontal lobe in the premotor cortex Severe left ICA stenosis 90%, scheduled to undergo TCAR with vascular surgery on 02/02/2025 Hx of left carotid endarectomy many years ago History of atrial fibrillation with cardiac ablation in 2005, not on anticoagulation History of coronary artery disease with prior cardiac stenting Hyperlipidemia Obesity with a BMI of 30.1 Hypertension Hypothyroidism GI prophylaxis Full Code Plan: Neurology on consultation along with vascular surgery and cardiology. Awaiting cardiac clearance this patient will be undergoing TCAR on 02/02/2025 tentatively with vascular surgery Continue telemetry monitoring and patient will continue on 3 S. for now. MRI revealed acute stroke, echocardiogram pending, and patient is continued on statin therapy, Patient has been started on aspirin 81 mg daily, plavix 75 mg daily dual antiplatelet therapy and to continue per vascular surgery Encouraged increase activity as tolerated and sitting up in the chair more frequently. Will follow-up on repeat labs in the a.m. and replace electrolytes per protocol The impression and plan of care has been dictated by Mandy Ayala, Nurse Practitioner as directed. Dr. Mary MD I have performed a history and physical examination and medical decision making of this patient, discussed the same with the dictator, and agree with the dictators assessment and plan as written, documented as a scribe. Based on total visit time, I have performed more than 50% of this visit. Objective - Vital Signs Vital signs: Vital Signs Temp 96.9 F L 01/30/25 08:40 Pulse 58 L 01/30/25 08:40 Resp 16 01/30/25 08:40 BP 110/70 01/30/25 08:40 Pulse Ox 95 01/30/25 08:40 FiO2 Intake & Output 01/29/25 01/30/25 01/30/25 18:59 06:59 18:59 Intake Total 838 245 Balance 838 245 Weight 82 kg Intake: IV 5 Invasive Line 1 5 Oral 838 240 Other: Voiding Method Toilet Toilet Toilet Diaper Diaper Diaper # Voids 2 1 1 # Bowel Movements 1 1 - Labs CBC & Chem 7: 01/27/25 16:41 01/29/25 03:20 Labs: Abnormal Lab Results - Last 24 Hours (Table) 01/29/25 Range/Units 03:20 NT-Pro-B Natriuret Pep 170 H (0-125) pg/mL
[2025-01-31 08:19] LABS: Basophils % (A) 1 %; Eosinophils # (A) 0.1 k/uL (0-0.7); Eosinophils % (A) 2 %; HCT 46.6 % (34.0-46.0); HGB 15.1 gm/dL (11.4-16.0); Lymphocytes # (A) 2.3 k/uL (1.0-4.8); Lymphocytes % (A) 34 %; MCH 29.7 pg (25.0-35.0); MCHC 32.4 g/dL (31.0-37.0); MCV 91.7 fL (80.0-100.0); Mean Platelet Volume 9.5; Monocytes # (A) 0.3 k/uL (0-1.0); Monocytes % (A) 5 %; Neutrophils # (A) 3.9 k/uL (1.3-7.7); Neutrophils % (A) 58 %; Platelet Count 231 k/uL (150-450); RBC 5.08 m/uL (3.80-5.40); RDW 14.2 % (11.5-15.5); WBC 6.8 k/uL (3.8-10.6)
[2025-01-31 08:34] LABS: ALT 33 U/L (4-34); AST 27 U/L (14-36); African American GFR (CKD) 80 (>60 ml/min/1.73 sqM); Albumin 4.2 g/dL (3.5-5.0); Alkaline Phosphatase 128 U/L (38-126); Anion Gap 10 mmol/L; Blood Urea Nitrogen 24 mg/dL (7-17); Calcium 9.9 mg/dL (8.4-10.2); Carbon Dioxide 26 mmol/L (22-30); Chloride 100 mmol/L (98-107); Glucose 116 mg/dL (74-99); Magnesium 1.6 mg/dL (1.6-2.3); Non-African American GFR(CKD) 69 (>60 ml/min/1.73 sqM); Potassium 4.5 mmol/L (3.5-5.1); Sodium 136 mmol/L (137-145); Total Bilirubin 0.7 mg/dL (0.2-1.3); Total Protein 7.4 g/dL (6.3-8.2)
--- NOTE | 2025-01-31 11:57 | P.PN ---
Subjective Progress Note Date: 01/31/25 Patient seen and examined. Doing well. No complaints or further focal deficits. Objective - Vital Signs Vital signs: Vital Signs Temp 96.9 F L 01/31/25 11:35 Pulse 59 L 01/31/25 11:35 Resp 16 01/31/25 11:35 BP 121/76 01/31/25 11:35 Pulse Ox 95 01/31/25 11:35 FiO2 Intake & Output 01/30/25 01/31/25 01/31/25 18:59 06:59 18:59 Intake Total 730 480 Balance 730 480 Weight 82 kg Intake: IV 10 Invasive Line 1 10 Oral 720 480 Other: Voiding Method Toilet Toilet Toilet Diaper Diaper Diaper # Voids 2 2 2 # Bowel Movements 1 1 - Exam General appearance: The patient is alert, oriented, appears in no acute distress. HET: Head is normocephalic and atraumatic. Pupils are equal and reactive. Neck: Supple. Left carotid bruit. Heart: Regular. Lungs: Equal expansion, normal respiratory effort. Abdomen: Soft, nontender, nondistended. Extremities: Normal skin color and turgor. Palpable radial pulses. Palpable DP pulses. Neurological: No focal deficits. Strength and sensation are grossly intact. - Labs CBC & Chem 7: 01/31/25 07:46 01/31/25 07:46 Labs: Abnormal Lab Results - Last 24 Hours (Table) 01/31/25 01/31/25 Range/Units 07:46 07:46 Hct 46.6 H (34.0-46.0) % Sodium 136 L (137-145) mmol/L BUN 24 H (7-17) mg/dL Glucose 116 H (74-99) mg/dL Alkaline Phosphatase 128 H (38-126) U/L Assessment and Plan Assessment: 1. Hemodynamically severe left ICA stenosis, Symptomatic per MRI 2. Acute ischemia posterior left frontal lobe on MRI 3. Right sided weakness resolved 4. History of left ICA stenosis status post carotid endarterectomy 2007 5. Coronary artery disease status postcardiac stent 6. Atrial fibrillation not on anticoagulation, post cardiac ablation Plan: Doing well overall, plan for TCAR, for left-sided recurrent carotid stenosis on Saturday. Continue aspirin Plavix and statin.
--- NOTE | 2025-01-31 14:05 | P.PN ---
Subjective Progress Note Date: 01/31/25 HISTORY OF PRESENT ILLNESS: This is a 74-year-old female with a past medical history significant for co ronary artery disease, atrial fibrillation with previous ablation in 2006, hypertension, carotid stenosis with previous left carotid endarterectomy, and hyperlipidemia. Patient used to follow with Dr. Contreras at [facility] but states she has not seen a turner machine operator in many years. We have been asked to see the patient in consultation for cardiac clearance. Patient examined at the bedside. Patient presented to the hospital with right sided weakness. Vascular surgery has been consulted for severe left ICA stenosis and are planning for surgical intervention. The patient states that she started having right-sided weakness on Saturday. At the time of examination her symptoms have improved. She currently denies any chest pain or pressure. She denies any shortness of breath. She states that she usually walks for 30 minutes a day on a treadmill without any difficulty. She states she has not had any recent cardiac testing including a stress test. Additionally, patient states she is not taking any anticoagulation for her history of atrial fibrillation. She was taking aspirin 81 mg daily at home. DIAGNOSTICS: - EKG reveals sinus mechanism with nonspecific ST-T wave changes. No signs of acute ischemia. - CT the brain: Negative for intracranial hemorrhage or midline shift - MRI of the brain: Small 3 mm focus of acute ischemia posterior left frontal lobe in the premotor cortex. Background mild to moderate diffuse cerebral atrophy and chronic small vessel ischemic changes. - Laboratory data: WBC 5.1. Hemoglobin 14.6. Platelet count 198. Sodium 140. Potassium 3.7. BUN 22.8. Creatinine 0.9. Triglycerides 381. Total cholesterol 202. LDL 82.4. HDL 43.4. TSH 3.910. - Current home cardiac medications include pravastatin 20 mg at night, losartanhydrochlorothiazide 100-25 mg daily, amlodipine 10 mg daily, metoprolol succinate 100 mg at night - No previous echocardiogram, stress test, or cardiac catheterization available in EMR for review 01/30 Patient and seen on the cardiac stepdown unit. Patient denies chest pain or shortness of breath. She feels she is back to her baseline. She has felt heart racing but none now. Patient is not currently on anticoagulation for A-fib. Echocardiogram reviewed with the patient. BP is stable. She is scheduled for TCAR on Saturday. We will plan to start Lovenox until surgery. Echocardiogram reveals EF 50 to 55%. No obvious regional wall motion abnormality. Mild concentric LV H. Moderate left atrial dilatation. Mild mi tral regurgitation. 01/31 Patient is seen and examined. Patient denies having chest pain chest pressure, no shortness of breath. Yesterday we started her on Lovenox for anticoagulation. She is scheduled for TCAR on Saturday. Blood pressure 121/76, heart rate 59, pulse ox 95% on room air. Repeat blood work reveals hemoglobin 15.1, BUN 24 creatinine 0.84, potassium 4.5. PHYSICAL EXAM: VITAL SIGNS: Reviewed. GENERAL: Well-developed in no acute distress. HEENT: Head is normocephalic. Pupils are equal, round. Sclerae anicteric. Mucous membranes of the mouth are moist. Neck supple. No JVD or thyromegaly. Left carotid bruit noted. LUNGS: Respirations even and unlabored. Lungs essentially clear to auscultation bilaterally. HEART: Regular rate and rhythm. S1 and S2 heard. ABDOMEN: Soft. Nondistended. Nontender. EXTREMITIES: Normal range of motion. No clubbing or cyanosis. Peripheral pul ses intact. No lower extremity edema NEUROLOGIC: Awake and alert. Oriented x 3. ASSESSMENT: Right sided weakness Acute CVA, MRI positive for acute ischemia posterior left frontal lobe in the premotor cortex Severe left ICA stenosis, 90%, TCAR scheduled for Saturday, 02/02 Coronary artery disease with previous stenting, details unknown Paroxysmal atrial fibrillation with previous ablation, 2006, not maintained on anticoagulation outpatient Hypertension Hyperlipidemia History of carotid stenosis with previous left carotid endarterectomy PLAN: Continue dual antiplatelet therapy with aspirin and Plavix Continue atorvastatin 40 mg at night Continue additional cardiac medications including amlodipine, losartanhydrochlorothiazide, and metoprolol Continue Lovenox 80 mg every 12 hours and stop 24 hours before surgery. Recommend Eliquis following surgery Patient is at intermediate to high risk to undergo surgery from a cardiac perspective. However there are no absolute contraindications. Recommend eventual outpatient stress testing as patient has not followed up with a turner machine operator in many years Recommend event monitor from [facility] at the time of discharge to assess for atrial fibrillation. Continue telemetry monitoring Further recommendations pending patient course Nurse practitioner note has been reviewed by physician. Signing provider agrees with the documented findings, assessment, and plan of care documented by [employer] as a scribe. Objective - Vital Signs Vital signs: Vital Signs Temp 97.5 F L 01/31/25 09:23 Pulse 59 L 01/31/25 09:23 Resp 16 01/31/25 09:23 BP 124/85 01/31/25 09:23 Pulse Ox 96 01/31/25 09:23 FiO2 Intake & Output 01/30/25 01/31/25 01/31/25 18:59 06:59 18:59 Intake Total 730 480 Balance 730 480 Weight 82 kg Intake: IV 10 Invasive Line 1 10 Oral 720 480 Other: Voiding Method Toilet Toilet Toilet Diaper Diaper Diaper # Voids 2 2 2 # Bowel Movements 1 1 - Labs CBC & Chem 7: 01/31/25 07:46 01/31/25 07:46 Labs: Abnormal Lab Results - Last 24 Hours (Table) 01/31/25 01/31/25 Range/Units 07:46 07:46 Hct 46.6 H (34.0-46.0) % Sodium 136 L (137-145) mmol/L BUN 24 H (7-17) mg/dL Glucose 116 H (74-99) mg/dL Alkaline Phosphatase 128 H (38-126) U/L
--- NOTE | 2025-02-01 03:53 | P.PN ---
Subjective Progress Note Date: 01/31/25 This is a 74-year-old female with medical history significant for atrial fibrillation, hypertension, hypothyroidism, prior cardiac stenting and cardiac ablation for the atrial fibrillation patient also underwent left carotid endarterectomy. Comes into the hospital with complaints of right upper extrem ity weakness that resolved on its own. This happened a couple days ago. States she noticed she was unable to pick and shovel man an object off a table with her right hand. Symptoms resolved. Than yesterday patient states that she has had 3-4 episodes of tingling in the right arm and her arm was essentially limp. This again resolved on its own. She was planning to have a CT angiography of her head and neck on an outpatient basis but because of the continued symptoms came into the ER for further evaluation. Brain CT reveals no acute intracranial hemorrhage or midline shift. CT angiography reveals no large vessel occlusion or aneurysm at the level of the [place]. There is postsurgical changes left neck or carotid bulb although there appears to be significant stenosis near 90% at the origin of the surgically treated left internal carotid artery advised further investigation directed catheter angiogram to better evaluate and/or treat. There is moderate to severe disc space narrowing, endplate sclerosis at the C5- C6 level moderate to space narrowing at C6-C7. Her CBC is completely unre markable sodium of 142 potassium 3.9, BUN of 20 creatinine of 0.90. Patient was admitted to the hospital to consult placed to neurology and vascular surgery. She does state that she is supposed to be taking aspirin 81 mg daily however does not remember to take it daily. She has had no issues with her atrial fibrillation since the ablation in 2005. Denies any smoking or alcohol use. 01/29/2025 Patient evaluated on the observation unit. Continues to report the right sided symptoms are resolved. She has been started on aspirin and plavix. Brain MRI reveals small 3 mm focus of acute ischemia posterior left frontal lobe in the premotor cortex. Background mild to moderate diffuse cerebral atrophy and chronic small vessel ischemic change is noted. Echocardiogram reveals EF 50-55% mild concentric LVH moderate left atrial dilatation and mild MR. 01/30/2025 Patient is seen in follow-up today being followed by multiple consultations including neurology, vascular surgery, cardiology. Plan is for surgical intervention with vascular surgery on 02/02/2025 TCAR. Patient reports to feeling relatively well and reports symptoms have resolved. Patient to continue on telemetry monitoring and will continue current regimen. Patient is up and walking and encouraged to increase activity as tolerated and sit up in the chair more frequently. Patient denies any chest pain, shortness of breath, or generalized weakness. 01/31/2025 Patient is seen in follow-up today with no acute overnight issues noted. Patient being followed by cardiology as well as vascular surgery with plans on TCAR for recurrent left ICA stenosis. Plan is for surgery on 02/02/2025 with vascular surgery. Patient denies chest pain, shortness of breath, or palpitations. Patient reports to tolerating diet with no reported nausea or vomiting. REVIEW OF SYSTEMS: CONSTITUTIONAL: No fever, no malaise, no fatigue. HEENT: No recent visual problems or hearing problems. Denied any sore throat. CARDIOVASCULAR: No chest pain, orthopnea, PND, no palpitations, no syncope. PULMONARY: No shortness of breath, no cough, no hemoptysis. GASTROINTESTINAL: No diarrhea, no nausea, no vomiting, no abdominal pain. NEUROLOGICAL: No headaches, no weakness, no numbness. PHYSICAL EXAMINATION: GENERAL: The patient is alert and oriented x3, not in any acute distress. Well developed, well nourished. Elderly appearing, obese HEENT: Pupils are round and equally reacting to light. EOMI. No scleral icterus. No conjunctival pallor. Normocephalic, atraumatic. No pharyngeal erythema. No thyromegaly. CARDIOVASCULAR: S1 and S2 muffled, irregular PULMONARY: Diminished breath sounds bilaterally otherwise chest is clear to auscultation, no wheezing or crackles. ABDOMEN: Soft, obese, nontender, nondistended, normoactive bowel sounds. No palpable organomegaly. MUSCULOSKELETAL: No joint swelling or deformity. EXTREMITIES: No cyanosis, clubbing, or pedal edema. NEUROLOGICAL: Gross neurological examination did not reveal any focal deficits. SKIN: No rashes. Assessment: Right sided parasthesias due to acuts ischemic stroke, symptoms have resolved at this time small 3 mm focus of acute ischemia posterior left frontal lobe in the premotor cortex Severe left ICA stenosis 90%, scheduled to undergo TCAR with vascular surgery on 02/02/2025 Hx of left carotid endarectomy many years ago History of atrial fibrillation with cardiac ablation in 2005, not on anticoagulation History of coronary artery disease with prior cardiac stenting Hyperlipidemia Obesity with a BMI of 30.1 Hypertension Hypothyroidism GI prophylaxis Full Code Plan: Neurology on consultation along with vascular surgery and cardiology. patient will be undergoing TCAR on 02/02/2025 tentatively with vascular surgery Continue telemetry monitoring and patient will continue on 3 S. for now. MRI revealed acute stroke, echocardiogram pending, and patient is continued on statin therapy, Patient has been started on aspirin 81 mg daily, plavix 75 mg daily dual antiplatelet therapy and to continue per vascular surgery Encouraged increase activity as tolerated and sitting up in the chair more frequently. Will follow-up on repeat labs in the a.m. and replace electrolytes per protocol The impression and plan of care has been dictated by Mandy Ayala, Nurse Practitioner as directed. Dr. Mary MD I have performed a history and physical examination and medical decision making of this patient, discussed the same with the dictator, and agree with the dictators assessment and plan as written, documented as a scribe. Based on total visit time, I have performed more than 50% of this visit. Objective - Vital Signs Vital signs: Vital Signs Temp 97.5 F L 01/31/25 09:23 Pulse 59 L 01/31/25 09:23 Resp 16 01/31/25 09:23 BP 124/85 01/31/25 09:23 Pulse Ox 96 01/31/25 09:23 FiO2 Intake & Output 01/30/25 01/31/25 01/31/25 18:59 06:59 18:59 Intake Total 730 480 Balance 730 480 Weight 82 kg Intake: IV 10 Invasive Line 1 10 Oral 720 480 Other: Voiding Method Toilet Toilet Toilet Diaper Diaper Diaper # Voids 2 2 # Bowel Movements 1 - Labs CBC & Chem 7: 01/31/25 07:46 01/31/25 07:46 Labs: Abnormal Lab Results - Last 24 Hours (Table) 01/31/25 01/31/25 Range/Units 07:46 07:46 Hct 46.6 H (34.0-46.0) % Sodium 136 L (137-145) mmol/L BUN 24 H (7-17) mg/dL Glucose 116 H (74-99) mg/dL Alkaline Phosphatase 128 H (38-126) U/L
[2025-02-01 08:04] LABS: African American GFR (CKD) 68 (>60 ml/min/1.73 sqM); Anion Gap 11 mmol/L; Blood Urea Nitrogen 29 mg/dL (7-17); Calcium 9.9 mg/dL (8.4-10.2); Carbon Dioxide 29 mmol/L (22-30); Chloride 98 mmol/L (98-107); Glucose 101 mg/dL (74-99); Magnesium 1.8 mg/dL (1.6-2.3); Non-African American GFR(CKD) 59 (>60 ml/min/1.73 sqM); Potassium 4.5 mmol/L (3.5-5.1); Sodium 138 mmol/L (137-145)
--- NOTE | 2025-02-01 11:48 | P.PN ---
Subjective Progress Note Date: 02/01/25 Principal diagnosis: Symptomatic carotid stenosis Patient is seen and examined today as a follow-up. No acute changes through the night. Denies any focal deficits. Scheduled tomorrow for left TCAR. Patient was cleared by cardiology and is intermediate to high risk to undergo surgery, without any absolute contraindications. Objective - Vital Signs Vital signs: Vital Signs Temp 97.4 F L 02/01/25 09:45 Pulse 61 02/01/25 09:45 Resp 16 02/01/25 09:45 BP 111/73 02/01/25 09:45 Pulse Ox 95 02/01/25 09:45 FiO2 Intake & Output 01/31/25 02/01/25 02/01/25 18:59 06:59 18:59 Intake Total 985 Balance 985 Intake: IV 25 Invasive Line 1 15 Invasive Line 2 10 Oral 960 Other: Voiding Method Toilet Toilet Toilet Diaper Diaper Diaper # Voids 2 1 1 # Bowel Movements 1 - Exam General appearance: The patient is alert, oriented, appears in no acute distress. HET: Head is normocephalic and atraumatic. Pupils are equal and reactive. Neck: Supple. Left carotid bruit. Heart: Regular. Lungs: Equal expansion, normal respiratory effort. Abdomen: Soft, nontender, nondistended. Extremities: Normal skin color and turgor. Palpable radial pulses. Palpable DP pulses. Neurological: No focal deficits. Strength and sensation are grossly intact. - Labs CBC & Chem 7: 01/31/25 07:46 02/01/25 07:26 Labs: Abnormal Lab Results - Last 24 Hours (Table) 02/01/25 Range/Units 07:26 BUN 29 H (7-17) mg/dL Glucose 101 H (74-99) mg/dL Assessment and Plan Assessment: 1. Hemodynamically severe left ICA stenosis 2. Acute ischemia posterior left frontal lobe on MRI 3. Right sided weakness resolved 4. History of left ICA stenosis status post carotid endarterectomy 2007 5. Coronary artery disease status postcardiac stent 6. Atrial fibrillation not on anticoagulation, post cardiac ablation Plan: 1. Continue Plavix 75 mg daily, continue aspirin 81 mg daily and statin 2. Cardiology following, continue with their recommendations. Patient considered moderate to high risk to undergo surgery from a cardiac standpoint without any absolute contraindications 3. N.p.o. after midnight 4. Hold Lovenox 5. Patient scheduled for left transcarotid artery revascularization with stent tomorrow. Procedure discussed with patient Thank you for this consultation, we will continue to follow. The impression and plan of care has been dictated as directed. Dr. Lindquist I performed a history and examination of this patient, discussed the same with the dictator. I agree with the dictator's note ,documented as a scribe. Any additional findings or plans will be noted.
--- NOTE | 2025-02-01 13:40 | P.PN ---
Subjective HISTORY OF PRESENT ILLNESS: This is a 74-year-old female with a past medical history significant for coronary artery disease, atrial fibrillation with previous ablation in 2006, hypertension, carotid stenosis with previous left carotid endarterectomy, and hyperlipidemia. Patient used to follow with Dr. Contreras at [facility] but states she has not seen a assistant oceanographer in many years. We have been asked to see the patient in consultation for cardiac clearance. Patient examined at the bedside. Patient presented to the hospital with right sided weakness. Vascular surgery has been consulted for severe left ICA stenosis and are planning for surgical intervention. The patient states that she started having right-sided weakness on Saturday. At the time of examination her symptoms have improved. She currently denies any chest pain or pressure. She denies any shortness of breath. She states that she usually walks for 30 minutes a day on a treadmill without any difficulty. She states she has not had any recent cardiac testing including a stress test. Additionally, patient states she is not taking any anticoagulation for her history of atrial fibrillation. She was taking aspirin 81 mg daily at home. DIAGNOSTICS: - EKG reveals sinus mechanism with nonspecific ST-T wave changes. No signs of acute ischemia. - CT the brain: Negative for intracranial hemorrhage or midline shift - MRI of the brain: Small 3 mm focus of acute ischemia posterior left frontal lobe in the premotor cortex. Background mild to moderate diffuse cerebral atrophy and chronic small vessel ischemic changes. - Laboratory data: WBC 5.1. Hemoglobin 14.6. Platelet count 198. Sodium 140. Potassium 3.7. BUN 22.8. Creatinine 0.9. Triglycerides 381. Total cholesterol 202. LDL 82.4. HDL 43.4. TSH 3.910. - Current home cardiac medications include pravastatin 20 mg at night, losartanhydrochlorothiazide 100-25 mg daily, amlodipine 10 mg daily, metoprolol succinate 100 mg at night - No previous echocardiogram, stress test, or cardiac catheterization available in EMR for review 01/30 Patient and seen on the cardiac stepdown unit. Patient denies chest pain or shortness of breath. She feels she is back to her baseline. She has felt heart racing but none now. Patient is not currently on anticoagulation for A-fib. Echocardiogram reviewed with the patient. BP is stable. She is scheduled for TCAR on Saturday. We will plan to start Lovenox until surgery. Echocardiogram reveals EF 50 to 55%. No obvious regional wall motion abnormality. Mild concentric LV H. Moderate left atrial dilatation. Mild mitral regurgitation. 01/31 Patient is seen and examined. Patient denies having chest pain chest pressure, no shortness of breath. Yesterday we started her on Lovenox for anticoagulation. She is scheduled for TCAR on Saturday. Blood pressure 121/76, heart rate 59, pulse ox 95% on room air. Repeat blood work reveals hemoglobin 15.1, BUN 24 creatinine 0.84, potassium 4.5. 02/01/2025 Patient examined this morning at the bedside. Patient currently denies chest pain or pressure. She denies shortness of breath. Vital signs are stable. Oliver gs reveal sinus mechanism. PHYSICAL EXAM: VITAL SIGNS: Reviewed. GENERAL: Well-developed in no acute distress. HEENT: Head is normocephalic. Pupils are equal, round. Sclerae anicteric. Mucous membranes of the mouth are moist. Neck supple. No JVD or thyromegaly. Left carotid bruit noted. LUNGS: Respirations even and unlabored. Lungs essentially clear to auscultation bilaterally. HEART: Regular rate and rhythm. S1 and S2 heard. ABDOMEN: Soft. Nondistended. Nontender. EXTREMITIES: Normal range of motion. No clubbing or cyanosis. Peripheral pulses intact. No lower extremity edema NEUROLOGIC: Awake and alert. Oriented x 3. ASSESSMENT: Right sided weakness Acute CVA, MRI positive for acute ischemia posterior left frontal lobe in the premotor cortex Severe left ICA stenosis, 90%, TCAR scheduled for Saturday, 02/02 Coronary artery disease with previous stenting, details unknown Paroxysmal atrial fibrillation with previous ablation, 2006, not maintained on anticoagulation outpatient Hypertension Hyperlipidemia History of carotid stenosis with previous left carotid endarterectomy PLAN: Continue current cardiac medications including amlodipine, aspirin, Lipitor, Plavix, losartanhydrochlorothiazide, and metoprolol Patient currently on Lovenox for atrial fibrillation. Begin Eliquis postoperatively. Continue telemetry monitoring Patient is at intermediate to high risk to undergo surgery from a cardiac perspective. However there are no absolute contraindications. Recommend eventual outpatient stress testing as patient has not followed up with a assistant oceanographer in many years Recommend event monitor from [facility] at the time of discharge to assess A-fib burden Further recommendations pending patient course Nurse practitioner note has been reviewed by physician. Signing provider agrees with the documented findings, assessment, and plan of care documented by SILK EXAMINER as a scribe. Objective - Vital Signs Vital signs: Vital Signs Temp 97.4 F L 02/01/25 09:45 Pulse 61 02/01/25 09:45 Resp 16 02/01/25 09:45 BP 111/73 02/01/25 09:45 Pulse Ox 95 02/01/25 09:45 FiO2 Intake & Output 01/31/25 02/01/25 02/01/25 18:59 06:59 18:59 Intake Total 985 Balance 985 Intake: IV 25 Invasive Line 1 15 Invasive Line 2 10 Oral 960 Other: Voiding Method Toilet Toilet Toilet Diaper Diaper Diaper # Voids 2 1 1 # Bowel Movements 1 - Labs CBC & Chem 7: 01/31/25 07:46 02/01/25 07:26 Labs: Abnormal Lab Results - Last 24 Hours (Table) 02/01/25 Range/Units 07:26 BUN 29 H (7-17) mg/dL Glucose 101 H (74-99) mg/dL
[2025-02-01] MEDS ORDERED: Magnesium Replacement Protocol 1 EACH MISC MISCELLANE PRN (20:11)
--- NOTE | 2025-02-01 20:12 | P.PN ---
Subjective Progress Note Date: 02/01/25 This is a 74-year-old female with medical history significant for atrial fibrillation, hypertension, hypothyroidism, prior cardiac stenting and cardiac ablation for the atrial fibrillation patient also underwent left carotid endarterectomy. Comes into the hospital with complaints of right upper extremity weakness that resolved on its own. This happened a couple days ago. States she noticed she was unable to roll picker an object off a table with her right hand. Symptoms resolved. Than yesterday patient states that she has had 3- 4 episodes of tingling in the right arm and her arm was essentially limp. This again resolved on its own. She was planning to have a CT angiography of her head and neck on an outpatient basis but because of the continued symptoms came into the ER for further evaluation. Brain CT reveals no acute intracranial hemorrhage or midline shift. CT angiography reveals no large vessel occlusion or aneurysm at the level of the [place]. There is postsurgical changes left neck or carotid bulb although there appears to be significant stenosis near 90% at the origin of the surgically treated left internal carotid artery advised further investigation directed catheter angiogram to better evaluate and/or treat. There is moderate to severe disc space narrowing, endplate sclerosis at the C5-C6 level moderate to space narrowing at C6-C7. Her CBC is completely unremarkable sodium of 142 potassium 3.9, BUN of 20 creatinine of 0.90. Patient was admitted to the hospital to consult placed to neurology and vascular surgery. She does state that she is supposed to be taking aspirin 81 mg daily however does not remember to take it daily. She has had no issues with her atrial fibrillation since the ablation in 2005. Denies any smoking or alcohol use. 01/29/2025 Patient evaluated on the observation unit. Continues to report the right sided symptoms are resolved. She has been started on aspirin and plavix. Brain MRI reveals small 3 mm focus of acute ischemia posterior left frontal lobe in the premotor cortex. Background mild to moderate diffuse cerebral atrophy and chronic small vessel ischemic change is noted. Echocardiogram reveals EF 50-55% mild concentric LVH moderate left atrial dilatation and mild MR. 01/30/2025 Patient is seen in follow-up today being followed by multiple consultations including neurology, vascular surgery, cardiology. Plan is for surgical intervention with vascular surgery on 02/02/2025 TCAR. Patient reports to feeling relatively well and reports symptoms have resolved. Patient to continue on telemetry monitoring and will continue current regimen. Patient is up and walking and encouraged to increase activity as tolerated and sit up in the chair more frequently. Patient denies any chest pain, shortness of breath, or generalized weakness. 01/31/2025 Patient is seen in follow-up today with no acute overnight issues noted. Patient being followed by cardiology as well as vascular surgery with plans on TCAR for recurrent left ICA stenosis. Plan is for surgery on 02/02/2025 with vascular surgery. Patient denies chest pain, shortness of breath, or palpitations. Patient reports to tolerating diet with no reported nausea or vomiting. 02/01/2025 Patient evaluated today sitting up in the chair. No acute events noted. Plan remains in place to undergo TCAR tomorrow 02/02/2025. Sodium 138, BUN 29, creatinine 0.96. Patient remains on aspirin and plavix. REVIEW OF SYSTEMS: CONSTITUTIONAL: No fever, no malaise, no fatigue. HEENT: No recent visual problems or hearing problems. Denied any sore throat. CARDIOVASCULAR: No chest pain, orthopnea, PND, no palpitations, no syncope. PULMONARY: No shortness of breath, no cough, no hemoptysis. GASTROINTESTINAL: No diarrhea, no nausea, no vomiting, no abdominal pain. NEUROLOGICAL: No headaches, no weakness, no numbness. PHYSICAL EXAMINATION: GENERAL: The patient is alert and oriented x3, not in any acute distress. Well developed, well nourished. Elderly appearing, obese HEENT: Pupils are round and equally reacting to light. EOMI. No scleral icterus. No conjunctival pallor. Normocephalic, atraumatic. No pharyngeal erythema. No thyromegaly. CARDIOVASCULAR: S1 and S2 muffled, irregular PULMONARY: Diminished breath sounds bilaterally otherwise chest is clear to auscultation, no wheezing or crackles. ABDOMEN: Soft, obese, nontender, nondistended, normoactive bowel sounds. No palpable organomegaly. MUSCULOSKELETAL: No joint swelling or deformity. EXTREMITIES: No cyanosis, clubbing, or pedal edema. NEUROLOGICAL: Gross neurological examination did not reveal any focal deficits. SKIN: No rashes. Assessment: Right sided parasthesias due to acuts ischemic stroke, symptoms have resolved at this time small 3 mm focus of acute ischemia posterior left frontal lobe in the premotor cortex Severe left ICA stenosis 90%, scheduled to undergo TCAR with vascular surgery on 02/02/2025 Hx of left carotid endarectomy many years ago History of atrial fibrillation with cardiac ablation in 2005, not on anticoagulation History of coronary artery disease with prior cardiac stenting Hyperlipidemia Obesity with a BMI of 30.1 Hypertension Hypothyroidism GI prophylaxis Full Code Plan: Neurology on consultation along with vascular surgery and cardiology. patient will be undergoing TCAR on 02/02/2025 tentatively with vascular surgery Continue telemetry monitoring and patient will continue on 3 S. for now. MRI revealed acute stroke, and patient is continued on statin therapy, Patient has been started on aspirin 81 mg daily, plavix 75 mg daily dual antiplatelet therapy and to continue per vascular surgery Encouraged increase activity as tolerated and sitting up in the chair more frequently. Will follow-up on repeat labs in the a.m. and replace electrolytes per protocol The impression and plan of care has been dictated by Genie Kwon, Nurse Practitioner as directed. Dr. Mary MD I have performed a history and physical examination and medical decision making of this patient, discussed the same with the dictator, and agree with the dictators assessment and plan as written, documented as a scribe. Based on total visit time, I have performed more than 50% of this visit. Objective - Vital Signs Vital signs: Vital Signs Temp 97.3 F L 02/01/25 20:00 Pulse 74 02/01/25 20:00 Resp 16 02/01/25 20:00 BP 127/82 02/01/25 20:00 Pulse Ox 98 02/01/25 20:00 FiO2 Intake & Output 02/01/25 02/01/25 02/02/25 06:59 18:59 06:59 Intake Total 684 Balance 684 Intake: Oral 684 Other: Voiding Method Toilet Toilet Diaper Diaper # Voids 1 3 - Labs CBC & Chem 7: 01/31/25 07:46 02/01/25 07:26 Labs: Abnormal Lab Results - Last 24 Hours (Table) 02/01/25 Range/Units 07:26 BUN 29 H (7-17) mg/dL Glucose 101 H (74-99) mg/dL Assessment and Plan Time with Patient: Less than 30
[2025-02-01] MEDS: MAGNESIUM SULFATE-D5W PMX 1 GM in DEXTROSE/WATER 1 100ML.BAG IVPB ONE (20:19)
[2025-02-02] MEDS: SODIUM CHLORIDE 0.9% 1,000 ML IV SCH (06:44)
[2025-02-02] MEDS ORDERED: ePHEDrine 50 MG/ML 1 ML VIAL ONE (07:34)
[2025-02-02] MEDS ORDERED: HEPARIN SODIUM,PORCINE 10,000 UNIT/ML 1 ML VIAL ONE (07:34)
[2025-02-02] MEDS ORDERED: PROTAMINE SULFATE 10 MG/ML 5 ML VIAL ONE (07:34)
[2025-02-02] MEDS ORDERED: fentaNYL (PF) 50 MCG/ML 2 ML AMP ONE (07:34)
[2025-02-02] MEDS ORDERED: methylPREDNISolone SOD SUCCI 125 MG/2 ML VIAL ONE (07:34)
[2025-02-02] MEDS ORDERED: DEXMEDETOMIDINE/0.9% NACL(PMX) 400 MCG/100 ML IV ONE (07:34)
[2025-02-02] MEDS ORDERED: GLYCOPYRROLATE 0.2 MG/ML 2 ML VIAL ONE (07:34)
[2025-02-02] MEDS: IV FLUID CONTINUATION 1,000 ML IV ONE (07:45)
[2025-02-02] MEDS: LIDOCAINE 1% INJ 10MG/ML (20 ML MDV) SQ ONE (08:15)
[2025-02-02] MEDS: IOPAMIDOL-370 100ML BTL INJ ONE (08:50)
[2025-02-02] MEDS ORDERED: RX INFO: IV CONTRAST WAS GIVEN 1 EACH MISC MISCELLANE PRN (09:00)
--- NOTE | 2025-02-02 09:45 | IR ---
EXAMINATION TYPE: IR stent intravas non coronary DATE OF EXAM: 02/02/2025 9:29 AM COMPARISON: Pre Operative Images if available both CT/MRI or plain film CLINICAL INDICATION: Female, 74 years old with history of TIA, 2.6m/6.16DAP,Lt Carotid cut down/sutur ed RT gr manual; TECHNIQUE: IR stent intravas non coronary, multiple fluoroscopic images provided for procedure. DAP: 6.16 mGym2 Gycm2 uGym2 cGycm2 or equivalent. FINDINGS: IMPRESSION: 1. Report was generated for administrative purposes only. 2. Please see the operative/procedural note for further details. [facility], , 02/02/2025 9:42 AM
--- NOTE | 2025-02-02 09:51 | P.OP ---
Date of Procedure: 02/02/25 Description of Procedure: Preoperative diagnosis: Symptomatic left internal carotid artery stenosis, high-grade Postoperative diagnosis: Same Procedure: left Transcarotid artery revascularization with stenting. [Right] common femoral vein central venous catheter placement under ultrasound guidance Surgeon: Yessy Duncan DO Direct Marketing Specialist: Yolanda Haskins Anesthesia: Conscious sedation Complications: None Condition: Stable Flow reversal time: 11 minutes Lesion length: 20 mm Indication for procedure: Patient is a 74-year-old female with previous left carotid endarterectomy who was found to have high-grade, greater than 95% stenosis of her left internal carotid artery with symptomatic findings on MRI. Long discussions were had regarding possible surgical interventions and risks and benefits were discussed. Due to her previous endarterectomy decision was made to go forward with a transcarotid artery revascularization and stent. She seemingly understood risks and was willing to proceed. Operative narrative: the patient all risks benefits and competitions were described the patient was brought to the Safety Sealer and laid in a supine position. The area of the neck and groins were prepped and draped in usual sterile fashion after appropriate anesthetic was performed per the anesthesiologist. A timeout was performed in normal fashion and antibiotics were administered prior to incision. Utilizing ultrasound the right common carotid artery was located and a transverse incision was created overlying this area after proper anesthetization. Dissection was carried between the sternocleidomastoid musculature down to the carotid sheath. The sheath was then incised and the common carotid artery was located and dissected free in a circumferential manner and controlled with umbilical tape. Once controlled, attention was placed down to the common femoral vein and utilizing ultrasound the vein was cannulated and the 8-Japanese sheath was placed in normal fashion. Attention was then placed back to the carotid artery and the patient was administered heparin and followed with ACTs and redosed as needed for ACT above 250. A pursestring suture was then placed at the common carotid artery with 5-0 Prolene and utilizing a micropuncture needle the common carotid artery was accessed and wire was placed followed by a 4-Japanese sheath. Carotid angiogram was then obtained demonstrating significant stenosis in the internal carotid artery. Stiff wire was then placed followed by the 8 Japanese [place] sheath. Flow reversal was then established with the enroute [employer] SEAMAN system. There was multiple occasions where the patient's cerebral oximetry did drop down therefore she was transition to low-flow and reversed back to high flow after balloon and stent was placed. After patient's blood pressure was increased to above 160, heart rate above 60 and ACT above 250. 014 wire was then placed across the lesion followed by a 5.5x30 mm Wilder balloon and balloon angioplasty was performed followed by an 8x40 mm [place]kroad stent. Postdilatation was not performed and final angiogram was obtained demonstrating complete resolution of the stenosis. All guidewires and catheters were removed and the sheath was removed and the arteriotomy was secured with the previously placed pursestring suture. Hemostasis was assured with Gelfoam and thrombin. The area was irrigated and closed. The platysma was closed with 3-0 Vicryl. The skin was closed with running 4-0 Monocryl in subcuticular fashionThe femoral sheath was also removed and pressure was held for hemostasis. The patient all procedure well and was moving all extremities and following commands. The patient was then sent to PACU for recovery.
[2025-02-02] MEDS ORDERED: MAG HYDROX/AL HYDROX/SIMETH 30 ML CUP PO PRN (09:53)
[2025-02-02] MEDS ORDERED: ATROPINE SULFATE 0.1 MG/ML 10ML SYRINGE IV PRN (09:53)
[2025-02-02] MEDS: LACTATED RINGERS 1,000 ML IV ONE (10:00)
[2025-02-02] MEDS: PHENYLEPHRINE-0.9% NACL SYG 1,000 MCG/10 ML SYRINGE IVP ONE ×10 (10:18→11:48)
[2025-02-02] MEDS: PSEUDOEPHEDRINE 30 MG TAB PO SCH (10:39)
--- NOTE | 2025-02-02 11:51 | P.PN ---
Subjective Progress Note Date: 02/01/25 02/01/2025: Patient was seen for a follow-up. Patient denies any headache, no dizziness. No focal symptoms. 01/30/2025: Patient was initially seen by Dr. Earl Rey. Please refer to his note for details. Patient is a 74-year-old female with transient right arm weakness and numbness. Patient has symptomatic left ICA. Patient undergoing carotid artery surgery on Saturday. Patient was seen for a follow-up. Patient is laying comfortably in the bed. Offers no complaints. Some of the workup during this hospital visit consisted of: Lipid panel: TG 381, Cholestrol 202, LDL 82 and HDL 43. TSH: 3.91 CT of the head is reported as no acute intracranial hemorrhage or midline shift. I personally reviewed the CT head and agree with report CT angiography of the head and neck: No large vessel occlusion or aneurysm at the level of [place]. Postsurgical changes at the left neck or carotid bulb level. There appears to be significant stenosis near 90% at the origin of the surgical treated left internal carotid artery. Objective - Vital Signs Vital signs: Vital Signs Temp 97.4 F L 02/01/25 09:45 Pulse 61 02/01/25 09:45 Resp 16 02/01/25 09:45 BP 111/73 02/01/25 09:45 Pulse Ox 95 02/01/25 09:45 FiO2 Intake & Output 01/31/25 02/01/25 02/01/25 18:59 06:59 18:59 Intake Total 985 462 Balance 985 462 Intake: IV 25 Invasive Line 1 15 Invasive Line 2 10 Oral 960 462 Other: Voiding Method Toilet Toilet Toilet Diaper Diaper Diaper # Voids 2 1 1 # Bowel Movements 1 - Exam On examination, patient is an elderly female, laying in the bed, very comfortably in no acute distress. Speech and language functions are completely normal. Mentation normal. Cranial nerves pupils are equal, round and reactive light, visual tanner are full, face is symmetric and tongue protrudes to midline. On muscle strength testing there is no pronator drift and the strength is normal in arms and legs. Sensory touch is equal with no neglect. No ataxia for [id number] testing on either side. - Labs CBC & Chem 7: 01/31/25 07:46 02/01/25 07:26 Labs: Abnormal Lab Results - Last 24 Hours (Table) 02/01/25 Range/Units 07:26 BUN 29 H (7-17) mg/dL Glucose 101 H (74-99) mg/dL Assessment and Plan Assessment: This is a 74-year-old woman who presented emergency department because of right upper extremity numbness and weakness. She stated that she had a week ago and episode of right hand dexterity issue then yesterday right upper extremity weakness and numbness that resolved. Clinically transient Ischemic stroke (TIA) due to likely symptomatic left ICA stenosis (90% stenosis), however MRI confirmed an acute stroke. MRI of the brain confirmed small 3 mm focus of acute ischemia posterior left frontal lobe, and the premotor cortex. Dyslipidemia Remote history of left ICA stenosis that was significant s/p carotid endartectomy. History of [place] in her 50s History of atrial fibrillation status post ablation also thus remote Plan: Patient has been on resumed her home medication of aspirin [address] Rey started the patient on Plavix 75 mg. Patient is on pravastatin 20 mg nightly MRI of the brain without contrast revealed small 3 mm focus of acute ischemia posterior left frontal lobe, and the premotor cortex. Background mild to moderate diffuse cerebral atrophy and chronic small vessel ischemic change noted. I personally reviewed MRI, agree with the findings. 2D echo revealed LVEF 50 to 55%. Mildly increased septal wall thickness. No obvious regional wall motion abnormalities. Moderate left atrial dilation. Mild MR. Vascular surgery team is contulted for symptomatic left ICA stenosis and patient is scheduled for surgery on 02/02/2025 for TCAR. Continue neurochecks Cardiac monitoring Recommend permissive hypertension for 24 to 40 hours PT and OT are not needed since the patient is back to baseline and has no deficit. Will defer the rest of the medical management to primary and other specialist For DVT prophylaxis: Patient on Lovenox 80 mg subcu every 12 hour.
[2025-02-02] MEDS: PHENYLEPHRINE 40 MG in SODIUM CHLORIDE 0.9% 250 ML IV SCH (11:54)
[2025-02-02 12:32] LABS: Glucose,Whole Blood 131 mg/dL (70-110)
[2025-02-02 13:08] LABS: HCT 40.5 % (34.0-46.0); HGB 13.5 gm/dL (11.4-16.0); MCH 30.2 pg (25.0-35.0); MCHC 33.3 g/dL (31.0-37.0); MCV 90.9 fL (80.0-100.0); Mean Platelet Volume 9.7; Platelet Count 207 k/uL (150-450); RBC 4.45 m/uL (3.80-5.40); WBC 7.6 k/uL (3.8-10.6)
[2025-02-02 13:37] LABS: African American GFR (CKD) >90 (>60 ml/min/1.73 sqM); Anion Gap 11 mmol/L; Blood Urea Nitrogen 20 mg/dL (7-17); Calcium 9.1 mg/dL (8.4-10.2); Carbon Dioxide 23 mmol/L (22-30); Chloride 104 mmol/L (98-107); Glucose 144 mg/dL (74-99); Magnesium 1.8 mg/dL (1.6-2.3); Non-African American GFR(CKD) 82 (>60 ml/min/1.73 sqM); Potassium 3.5 mmol/L (3.5-5.1); Sodium 138 mmol/L (137-145)
[2025-02-02] MEDS ORDERED: Potassium Replacement Protocol 1 EACH MISC MISCELLANE PRN (14:25)
[2025-02-02] MEDS: POTASSIUM CHLORIDE ER 20 MEQ TAB.ER PO SCH (15:23)
[2025-02-02] MEDS: MAGNESIUM SULFATE-D5W PMX 1 GM in DEXTROSE/WATER 1 100ML.BAG IVPB ONE (15:23)
--- NOTE | 2025-02-02 19:34 | P.PN ---
Subjective Progress Note Date: 02/02/25 This is a 74-year-old female with medical history significant for atrial fibrillation, hypertension, hypothyroidism, prior cardiac stenting and cardiac ablation for the atrial fibrillation patient also underwent left carotid endarterectomy. Comes into the hospital with complaints of right upper extremity weakness that resolved on its own. This happened a couple days ago. States she noticed she was unable to cloth picker an object off a table with her right hand. Symptoms resolved. Than yesterday patient states that she has had 3- 4 episodes of tingling in the right arm and her arm was essentially limp. This again resolved on its own. She was planning to have a CT angiography of her head and neck on an outpatient basis but because of the continued symptoms came into the ER for further evaluation. Brain CT reveals no acute intracranial hemorrhage or midline shift. CT angiography reveals no large vessel occlusion or aneurysm at the level of the [place] of [place]. There is postsurgical changes left neck or carotid bulb although there appears to be significant stenosis near 90% at the origin of the surgically treated left internal carotid artery advised further investigation directed catheter angiogram to better evaluate and/or treat. There is moderate to severe disc space narrowing, endplate sclerosis at the C5-C6 level moderate to space narrowing at C6-C7. Her CBC is completely unremarkable sodium of 142 potassium 3.9, BUN of 20 creatinine of 0.90. Patient was admitted to the hospital to consult placed to neurology and vascular surgery. She does state that she is supposed to be taking aspirin 81 mg daily however does not remember to take it daily. She has had no issues with her atrial fibrillation since the ablation in 2005. Denies any smoking or alcohol use. 01/29/2025 Patient evaluated on the observation unit. Continues to report the right sided symptoms are resolved. She has been started on aspirin and plavix. Brain MRI reveals small 3 mm focus of acute ischemia posterior left frontal lobe in the premotor cortex. Background mild to moderate diffuse cerebral atrophy and chronic small vessel ischemic change is noted. Echocardiogram reveals EF 50-55% mild concentric LVH moderate left atrial dilatation and mild MR. 01/30/2025 Patient is seen in follow-up today being followed by multiple consultations including neurology, vascular surgery, cardiology. Plan is for surgical intervention with vascular surgery on 02/02/2025 TCAR. Patient reports to feeling relatively well and reports symptoms have resolved. Patient to continue on telemetry monitoring and will continue current regimen. Patient is up and walking and encouraged to increase activity as tolerated and sit up in the chair more frequently. Patient denies any chest pain, shortness of breath, or generalized weakness. 01/31/2025 Patient is seen in follow-up today with no acute overnight issues noted. Patient being followed by cardiology as well as vascular surgery with plans on TCAR for recurrent left ICA stenosis. Plan is for surgery on 02/02/2025 with vascular surgery. Patient denies chest pain, shortness of breath, or palpitations. Patient reports to tolerating diet with no reported nausea or vomiting. 02/01/2025 Patient evaluated today sitting up in the chair. No acute events noted. Plan remains in place to undergo TCAR tomorrow 02/02/2025. Sodium 138, BUN 29, creatinine 0.96. Patient remains on aspirin and plavix. 02/02/2025 Patient is going for TCAR today with Dr. Duncan and will be monitored in the ICU post procedure. No new neurological deficits noted. Brain MRI was positive for Left frontal infarct. Patient remains on Aspirin and plavix. REVIEW OF SYSTEMS: CONSTITUTIONAL: No fever, no malaise, no fatigue. HEENT: No recent visual problems or hearing problems. Denied any sore throat. CARDIOVASCULAR: No chest pain, orthopnea, PND, no palpitations, no syncope. PULMONARY: No shortness of breath, no cough, no hemoptysis. GASTROINTESTINAL: No diarrhea, no nausea, no vomiting, no abdominal pain. NEUROLOGICAL: No headaches, no weakness, no numbness. PHYSICAL EXAMINATION: GENERAL: The patient is alert and oriented x3, not in any acute distress. Well developed, well nourished. Elderly appearing, obese HEENT: Pupils are round and equally reacting to light. EOMI. No scleral icterus. No conjunctival pallor. Normocephalic, atraumatic. No pharyngeal erythema. No thyromegaly. CARDIOVASCULAR: S1 and S2 muffled, irregular PULMONARY: Diminished breath sounds bilaterally otherwise chest is clear to auscultation, no wheezing or crackles. ABDOMEN: Soft, obese, nontender, nondistended, normoactive bowel sounds. No palpable organomegaly. MUSCULOSKELETAL: No joint swelling or deformity. EXTREMITIES: No cyanosis, clubbing, or pedal edema. NEUROLOGICAL: Gross neurological examination did not reveal any focal deficits. SKIN: No rashes. Assessment: Right sided parasthesias due to acuts ischemic stroke, symptoms have resolved at this time small 3 mm focus of acute ischemia posterior left frontal lobe in the premotor cortex Severe left ICA stenosis 90%, scheduled to undergo TCAR with vascular surgery on 02/02/2025 Hx of left carotid endarectomy many years ago History of atrial fibrillation with cardiac ablation in 2005, not on anticoagu lation History of coronary artery disease with prior cardiac stenting Hyperlipidemia Obesity with a BMI of 30.1 Hypertension Hypothyroidism GI prophylaxis Full Code Plan: Neurology on consultation along with vascular surgery and cardiology. patient will be undergoing TCAR today 02/02/2025 tentatively with vascular surgery and will be monitored in the ICU post procedure. Continue telemetry monitoring MRI revealed acute stroke, and patient is continued on statin therapy, Patient has been started on aspirin 81 mg daily, plavix 75 mg daily dual antiplatelet therapy and to continue per vascular surgery Encouraged increase activity as tolerated and sitting up in the chair more frequently. Will follow-up on repeat labs in the a.m. and replace electrolytes per protocol The impression and plan of care has been dictated by Genie Kwon, Nurse Practitioner as directed. Dr. Mary MD I have performed a history and physical examination and medical decision making of this patient, discussed the same with the dictator, and agree with the dictators assessment and plan as written, documented as a scribe. Based on total visit time, I have performed more than 50% of this visit. Objective - Vital Signs Vital signs: Vital Signs Temp 97.6 F 02/02/25 16:00 Pulse 81 02/02/25 19:00 Resp 21 02/02/25 19:00 BP 148/67 02/02/25 12:00 Pulse Ox 93 L 02/02/25 19:00 FiO2 Intake & Output 02/02/25 02/02/25 02/03/25 06:59 18:59 06:59 Intake Total 10 1450.215 Output Total 950 Balance 10 500.215 Weight 82.1 kg Intake: IV 10 850 Invasive Line 2 10 Sodium Chloride 0.9% 1, 350 000 ml @ 50 mls/hr IV . Q20H [facility] Rx#:[id number] Intake, IV Titration 60.215 Amount Phenylephrine 40 mg In 60.215 Sodium Chloride 0.9% 250 ml @ 0.5 MCG/KG/MIN 15.64 mls/hr IV .[id number] [facility] Rx#:[id number] Oral 540 Output: Urine 950 Other: Voiding Method Toilet External Catheter Diaper # Voids 1 ABP, PAP, CO, CI - Last Documented Arterial Blood Pressure 137/63 - Labs CBC & Chem 7: 02/02/25 12:40 02/02/25 12:40 Labs: Abnormal Lab Results - Last 24 Hours (Table) 02/02/25 02/02/25 Range/Units 12:30 12:40 BUN 20 H (7-17) mg/dL Glucose 144 H (74-99) mg/dL POC Glucose (mg/dL) 131 H (70-110) mg/dL Assessment and Plan Time with Patient: Less than 30
[2025-02-03 04:34] VITALS: TEMP 97.6
[2025-02-03 05:41] LABS: Basophils % (A) 0 %; Eosinophils # (A) 0.1 k/uL (0-0.7); Eosinophils % (A) 0 %; HCT 41.5 % (34.0-46.0); HGB 13.3 gm/dL (11.4-16.0); Lymphocytes # (A) 1.2 k/uL (1.0-4.8); Lymphocytes % (A) 8 %; MCH 29.8 pg (25.0-35.0); MCHC 32.2 g/dL (31.0-37.0); MCV 92.5 fL (80.0-100.0); Monocytes # (A) 0.7 k/uL (0-1.0); Monocytes % (A) 5 %; Neutrophils # (A) 13.3 k/uL (1.3-7.7); Neutrophils % (A) 87 %; Platelet Count 273 k/uL (150-450); RBC 4.49 m/uL (3.80-5.40); WBC 15.3 k/uL (3.8-10.6)
[2025-02-03 05:51] LABS: African American GFR (CKD) >90 (>60 ml/min/1.73 sqM); Anion Gap 13 mmol/L; Blood Urea Nitrogen 17 mg/dL (7-17); Calcium 9.6 mg/dL (8.4-10.2); Carbon Dioxide 22 mmol/L (22-30); Chloride 103 mmol/L (98-107); Glucose 126 mg/dL (74-99); Non-African American GFR(CKD) 89 (>60 ml/min/1.73 sqM); Potassium 4.4 mmol/L (3.5-5.1); Sodium 138 mmol/L (137-145)
[2025-02-03 10:43] VITALS: BMI 32.2
--- NOTE | 2025-02-03 11:31 | P.PN ---
Subjective Progress Note Date: 02/02/25 02/02/2025: Patient was seen for a follow-up. Patient had undergone left TCAR by vascular surgery earlier today. Patient is doing very well. Patient denies any focal symptoms. Denies any numbness tingling or focal weakness. 02/01/2025: Patient was seen for a follow-up. Patient denies any headache, no dizziness. No focal symptoms. 01/30/2025: Patient was initially seen by Dr. Earl Rey. Please refer to his note for details. Patient is a 74-year-old female with transient right arm weakness and numbness. Patient has symptomatic left ICA. Patient undergoing carotid artery surgery on Saturday. Patient was seen for a follow-up. Patient is laying comfortably in the bed. Offers no complaints. Some of the workup during this hospital visit consisted of: Lipid panel: TG 381, Cholestrol 202, LDL 82 and HDL 43. TSH: 3.91 CT of the head is reported as no acute intracranial hemorrhage or midline shift. I personally reviewed the CT head and agree with report CT angiography of the head and neck: No large vessel occlusion or aneurysm at the level of [place]. Postsurgical changes at the left neck or carotid bulb level. There appears to be significant stenosis near 90% at the origin of the surgical treated left internal carotid artery. Objective - Vital Signs Vital signs: Vital Signs Temp 97.6 F 02/02/25 16:00 Pulse 73 02/02/25 16:00 Resp 17 02/02/25 16:00 BP 148/67 02/02/25 12:00 Pulse Ox 97 02/02/25 16:00 FiO2 Intake & Output 02/01/25 02/02/25 02/02/25 18:59 06:59 18:59 Intake Total 036 28 6095.584 Output Total 500 Balance 684 10 772.584 Weight 82.1 kg Intake: IV 10 700 Invasive Line 2 10 Sodium Chloride 0.9% 1, 200 000 ml @ 50 mls/hr IV . Q20H [facility] Rx#:[id number] Intake, IV Titration 32.584 Amount Phenylephrine 40 mg In 32.584 Sodium Chloride 0.9% 250 ml @ 0.5 MCG/KG/MIN 15.64 mls/hr IV .[id number] [facility] Rx#:[id number] Oral 684 540 Output: Urine 500 Other: Voiding Method Toilet Toilet External Catheter Diaper Diaper # Voids 3 1 ABP, PAP, CO, CI - Last Documented Arterial Blood Pressure 135/61 - Exam On examination, patient is an elderly female, laying in the bed, very comfortably in no acute distress. Patient has a dressing in the left side of the neck. Speech and language functions are completely normal. Mentation normal. Cranial nerves pupils are equal, round and reactive light, visual tanner are full, face is symmetric and tongue protrudes to midline. On muscle strength testing there is no pronator drift and the strength is normal in arms and legs. Sensory touch is equal with no neglect. No ataxia for [id number] testing on either side. - Labs CBC & Chem 7: 02/03/25 05:20 02/03/25 05:20 Labs: Abnormal Lab Results - Last 24 Hours (Table) 02/02/25 02/02/25 Range/Units 12:30 12:40 BUN 20 H (7-17) mg/dL Glucose 144 H (74-99) mg/dL POC Glucose (mg/dL) 131 H (70-110) mg/dL Assessment and Plan Assessment: This is a 74-year-old woman who presented emergency department because of right upper extremity numbness and weakness. She stated that she had a week ago and episode of right hand dexterity issue then yesterday right upper extremity weakness and numbness that resolved. Clinically appears a TIA, likely due to symptomatic left ICA stenosis (90% sten osis), however MRI confirmed an acute stroke. MRI of the brain confirmed small 3 mm focus of acute ischemia posterior left frontal lobe, and the premotor cortex. Dyslipidemia Remote history left carotid endartectomy, now with restenosis. Status post left TCAR, today on 02/02/2025 History of [place] in her 50s History of atrial fibrillation status post ablation also thus remote Plan: Patient has been on resumed her home medication of aspirin [address] Rey started the patient on Plavix 75 mg. Patient is on pravastatin 20 mg nightly MRI of the brain without contrast revealed small 3 mm focus of acute ischemia posterior left frontal lobe, and the premotor cortex. Background mild to moderate diffuse cerebral atrophy and chronic small vessel ischemic change not ed. I personally reviewed MRI, agree with the findings. 2D echo revealed LVEF 50 to 55%. Mildly increased septal wall thickness. No obvious regional wall motion abnormalities. Moderate left atrial dilation. Mild MR. Patient underwent successful left TCAR today on 02/02/2025. Patient is doing well. No further focal symptoms postsurgery. Continue neurochecks Cardiac monitoring Optimize control of blood pressure. PT and OT are not needed since the patient is back to baseline and has no deficit. Will defer the rest of the medical management to primary and other specialist For DVT prophylaxis: Patient on Lovenox 80 mg subcu every 12 hour. Neurologically clear for discharge, if patient remains stable overnight.
--- NOTE | 2025-02-03 12:22 | P.PN ---
Subjective Progress Note Date: 02/03/25 Principal diagnosis: Symptomatic carotid stenosis Patient is seen and examined today as a follow-up. She is postop day #1 for left transcarotid artery revascularization with stent. Patient did have some bleeding at the surgical site that had to be reinforced through the night. Bleeding has stopped at this point. She has no surrounding swelling or hematoma. She is up in the chair. She was maintained on low-dose of N[place]- Synephrine through the night. Systolic blood pressures have been in the 130s. She denies any shortness of breath, chest pain, dizziness or headache. She is tolerating a regular diet no difficulty swallowing. She has been up and voiding and had a bowel movement this morning. Denies any focal deficits. Oral blood pressure medications are on hold currently Objective - Vital Signs Vital signs: Vital Signs Temp 97.6 F 02/03/25 08:00 Pulse 68 02/03/25 08:00 Resp 17 02/03/25 08:00 BP 148/67 02/02/25 12:00 Pulse Ox 96 02/03/25 08:00 FiO2 Intake & Output 02/02/25 02/03/25 02/03/25 18:59 06:59 18:59 Intake Total 1450.215 822.088 79.195 Output Total 950 900 0 Balance 500.215 -77.912 79.195 Weight 87.8 kg Intake: IV 850 600 50 Sodium Chloride 0.9% 1, 350 600 50 000 ml @ 50 mls/hr IV . Q20H VERONICA Rx#:[id number] Intake, IV Titration 60.215 222.088 29.195 Amount Phenylephrine 40 mg In 60.215 222.088 29.195 Sodium Chloride 0.9% 250 ml @ 0.5 MCG/KG/MIN 15.64 mls/hr IV .[id number] VERONICA Rx#:[id number] Oral 540 Output: Urine 950 900 0 Other: Voiding Method External Catheter External Catheter External Catheter ABP, PAP, CO, CI - Last Documented Arterial Blood Pressure 146/67 - Exam General appearance: The patient is alert, oriented, appears in no acute distress. HET: Head is normocephalic and atraumatic. Pupils are equal and reactive. Neck: Supple. Left-sided neck with incision well-approximated, no active ble eding. No surrounding hematoma. Minimal swelling with mild ecchymosis. Heart: Regular. Lungs: Equal expansion, normal respiratory effort. Abdomen: Soft, nontender, nondistended. Extremities: Normal skin color and turgor. Palpable radial pulses. Palpable DP pulses. Right groin access site without any active bleeding or hematoma. Some mild ecchymosis. Neurological: No focal deficits. Strength and sensation are grossly intact. - Labs CBC & Chem 7: 02/03/25 05:20 02/03/25 05:20 Labs: Abnormal Lab Results - Last 24 Hours (Table) 02/02/25 02/02/25 02/03/25 Range/Units 12:30 12:40 05:20 WBC 15.3 H (3.8-10.6) k/uL Neutrophils # 13.3 H (1.3-7.7) k/uL BUN 20 H (7-17) mg/dL Glucose 144 H (74-99) mg/dL POC Glucose (mg/dL) 131 H (70-110) mg/dL 02/03/25 Range/Units 05:20 WBC (3.8-10.6) k/uL Neutrophils # (1.3-7.7) k/uL BUN (7-17) mg/dL Glucose 126 H (74-99) mg/dL POC Glucose (mg/dL) (70-110) mg/dL Assessment and Plan Assessment: 1. Hemodynamically severe left ICA stenosis status post op day #1 for left transcarotid artery revascularization with stent 2. Acute ischemia posterior left frontal lobe on MRI 3. Right sided weakness resolved 4. History of left ICA stenosis status post carotid endarterectomy 2007 5. Coronary artery disease status postcardiac stent 6. Atrial fibrillation not on anticoagulation, post cardiac ablation Plan: 1. Continue Plavix 75 mg daily, continue aspirin 81 mg daily and statin 2. Cardiology following. If the recommendation is anticoagulation would like patient to remain on Plavix and can hold aspirin 3. Encourage ambulation 4. Hold Lovenox 5. Heart healthy diet 6. Hold hypertensive oral medications today, then restart per recommendations from PCP and cardiology Thank you for this consultation, we will continue to follow. The impression and plan of care has been dictated as directed. Dr. Keiko Al performed a history and examination of this patient, discussed the same with the dictator. I agree with the dictator's note ,documented as a scribe. Any additional findings or plans will be noted.
--- NOTE | 2025-02-03 14:24 | P.PN ---
Subjective Progress Note Date: 02/03/25 HISTORY OF PRESENT ILLNESS: This is a 74-year-old female with a past medical history significant for co ronary artery disease, atrial fibrillation with previous ablation in 2006, hypertension, carotid stenosis with previous left carotid endarterectomy, and hyperlipidemia. Patient used to follow with Dr. Contreras at [place] but states she has not seen a commercial singer in many years. We have been asked to see the patient in consultation for cardiac clearance. Patient examined at the bedside. Patient presented to the hospital with right sided weakness. Vascular surgery has been consulted for severe left ICA stenosis and are planning for surgical intervention. The patient states that she started having right-sided weakness on Saturday. At the time of examination her symptoms have improved. She currently denies any chest pain or pressure. She denies any shortness of breath. She states that she usually walks for 30 minutes a day on a treadmill without any difficulty. She states she has not had any recent cardiac testing including a stress test. Additionally, patient states she is not taking any anticoagulation for her history of atrial fibrillation. She was taking aspirin 81 mg daily at home. DIAGNOSTICS: - EKG reveals sinus mechanism with nonspecific ST-T wave changes. No signs of acute ischemia. - CT the brain: Negative for intracranial hemorrhage or midline shift - MRI of the brain: Small 3 mm focus of acute ischemia posterior left frontal lobe in the premotor cortex. Background mild to moderate diffuse cerebral atrophy and chronic small vessel ischemic changes. - Laboratory data: WBC 5.1. Hemoglobin 14.6. Platelet count 198. Sodium 140. Potassium 3.7. BUN 22.8. Creatinine 0.9. Triglycerides 381. Total cholesterol 202. LDL 82.4. HDL 43.4. TSH 3.910. - Current home cardiac medications include pravastatin 20 mg at night, losartanhydrochlorothiazide 100-25 mg daily, amlodipine 10 mg daily, metoprolol succinate 100 mg at night - No previous echocardiogram, stress test, or cardiac catheterization available in EMR for review 01/30 Patient and seen on the cardiac stepdown unit. Patient denies chest pain or shortness of breath. She feels she is back to her baseline. She has felt heart racing but none now. Patient is not currently on anticoagulation for A-fib. Echocardiogram reviewed with the patient. BP is stable. She is scheduled for TCAR on Saturday. We will plan to start Lovenox until surgery. Echocardiogram reveals EF 50 to 55%. No obvious regional wall motion abnormality. Mild concentric LV H. Moderate left atrial dilatation. Mild mi tral regurgitation. 01/31 Patient is seen and examined. Patient denies having chest pain chest pressure, no shortness of breath. Yesterday we started her on Lovenox for anticoagulation. She is scheduled for TCAR on Saturday. Blood pressure 121/76, heart rate 59, pulse ox 95% on room air. Repeat blood work reveals hemoglobin 15.1, BUN 24 creatinine 0.84, potassium 4.5. 02/01/2025 Patient examined this morning at the bedside. Patient currently denies chest pain or pressure. She denies shortness of breath. Vital signs are stable. Lungs reveal sinus mechanism. 02/03/2025 On 02/02/2025, patient underwent TCAR procedure for the left coronary artery stenosis. PHYSICAL EXAM: VITAL SIGNS: Reviewed. GENERAL: Well-developed in no acute distress. HEENT: Head is normocephalic. Pupils are equal, round. Sclerae anicteric. Mucous membranes of the mouth are moist. Neck supple. No JVD or thyromegaly. Left carotid bruit noted. LUNGS: Respirations even and unlabored. Lungs essentially clear to auscultation bilaterally. HEART: Regular rate and rhythm. S1 and S2 heard. ABDOMEN: Soft. Nondistended. Nontender. EXTREMITIES: Normal range of motion. No clubbing or cyanosis. Peripheral pulses intact. No lower extremity edema NEUROLOGIC: Awake and alert. Oriented x 3. ASSESSMENT: Right sided weakness Acute CVA, MRI positive for acute ischemia posterior left frontal lobe in the premotor cortex Severe left ICA stenosis, 90%, TCAR scheduled for Saturday, 02/02 Coronary artery disease with previous stenting, details unknown Paroxysmal atrial fibrillation with previous ablation, 2006, not maintained on anticoagulation outpatient Hypertension Hyperlipidemia History of carotid stenosis with previous left carotid endarterectomy PLAN: Continue current cardiac medications including amlodipine, , Lipitor, Plavix, losartanhydrochlorothiazide, and metoprolol Discontinue aspirin, start Eliquis 5 mg twice daily for nonvalvular atrial fibrillation with elevated [id number] score Recommend outpatient noninvasive ischemic evaluation with a stress test Patient is cleared to be discharged from cardiovascular standpoint Objective - Vital Signs Vital signs: Vital Signs Temp 97.6 F 02/03/25 08:00 Pulse 68 02/03/25 14:00 Resp 18 02/03/25 14:00 BP 119/74 02/03/25 14:00 Pulse Ox 96 02/03/25 14:00 FiO2 Intake & Output 02/02/25 02/03/25 02/03/25 18:59 06:59 18:59 Intake Total 1450.215 822.088 614.905 Output Total 950 900 0 Balance 500.215 -77.912 614.905 Weight 87.8 kg 87.8 kg Intake: IV 850 600 350 Sodium Chloride 0.9% 1, 350 600 350 000 ml @ 50 mls/hr IV . Q20H VERONICA Rx#:[id number] Intake, IV Titration 60.215 222.088 64.905 Amount Phenylephrine 40 mg In 60.215 222.088 64.905 Sodium Chloride 0.9% 250 ml @ 0.5 MCG/KG/MIN 15.64 mls/hr IV .[id number] VERONICA Rx#:[id number] Oral 540 200 Output: Urine 950 900 0 Other: Voiding Method External Catheter External Catheter External Catheter # Voids 1 # Bowel Movements 1 ABP, PAP, CO, CI - Last Documented Arterial Blood Pressure 112/69 - Labs CBC & Chem 7: 02/03/25 05:20 02/03/25 05:20 Labs: Abnormal Lab Results - Last 24 Hours (Table) 02/03/25 02/03/25 Range/Units 05:20 05:20 WBC 15.3 H (3.8-10.6) k/uL Neutrophils # 13.3 H (1.3-7.7) k/uL Glucose 126 H (74-99) mg/dL
[2025-02-03 15:20] VITALS: BP 117/87; PULSE 75; RESP 22
[2025-02-03] MEDS ORDERED: APIXABAN 5 MG TAB PO SCH (21:00)
--- NOTE | 2025-02-05 10:46 | P.ANPRN ---
Procedure Note - Anesthesia - Invasive Line Left Arterial Line Time Out Performed: Yes ([id number]) Date of Procedure: 02/01/25 Time of Procedure: 07:17 Location of Patient: PreOp (cvl) Preparation: Sterile Prep, Sterile Dressing Arterial Line Location: Radial (Left forearm) Ultrasound Used: No Purpose - Visualization and Identification of Vasculature: No Needle Guage: 20-gauge Image Stored and Saved: No Narrative: Invasive line placement per sterile protocol utilized. Sterile protocol. 3 attempts. Lumen blood and flushed. Secured and dressed.
== END 2025-02-03 16:36 | disposition home or self-care (01) | DRG 36 ==
LOC: EC 15:39 → 6NMEDSUR 20:03 → OBSVTOIN 20:04 → 6NMEDSUR 20:18 → 3SCARD 01-29 15:52 → 2SICU 02-02 11:29
PROVIDERS: ADMIT Hospitalist; ATTEND Hospitalist
PROC: 06HY33Z Insertion of Infusion Device into Lower Vein, Percutaneous Approach (ICD-10-PCS; principal; 2025-02-02 07:30)
PROC: 037L3DZ Dilation of Left Internal Carotid Artery with Intraluminal Device, Percutaneous Approach (ICD-10-PCS; principal; 2025-02-02 07:30)
DX: I63.232 Cerebral infarction due to unspecified occlusion or stenosis of left carotid arteries (principal); E03.9 Hypothyroidism, unspecified; E66.9 Obesity, unspecified; I48.0 Paroxysmal atrial fibrillation; G83.21 Monoplegia of upper limb affecting right dominant side; I10 Essential (primary) hypertension; I34.0 Nonrheumatic mitral (valve) insufficiency; M19.90 Unspecified osteoarthritis, unspecified site; E78.5 Hyperlipidemia, unspecified; I25.10 Atherosclerotic heart disease of native coronary artery without angina pectoris; I25.2 Old myocardial infarction; M48.02 Spinal stenosis, cervical region; N32.81 Overactive bladder; Z68.30 Body mass index [BMI] 30.0-30.9, adult; Z79.02 Long term (current) use of antithrombotics/antiplatelets; Z79.82 Long term (current) use of aspirin; Z79.890 Hormone replacement therapy; Z79.899 Other long term (current) drug therapy; Z95.5 Presence of coronary angioplasty implant and graft; Z96.642 Presence of left artificial hip joint; Z71.3 Dietary counseling and surveillance; Z91.041 Radiographic dye allergy status
CPT/HCPCS: 36415; 37215; 70450; 70496; 70498; 70551; 76937; 80048; 80053; 80061; 83036; 83735; 83880; 84443; 85025; 85027; 85610; 85730; 86850; 86900; 86901; 93005; 93270; 93306